=== PATIENT | female | born 1935 | race Caucasian/White ===

== ENCOUNTER 2019-04-27 11:44 | Emergency (ER) | payer OTHER, SELFPAY ==
--- NOTE | ~2019-04-27 | US_ITS ---
EXAMINATION: US venous doppler LE RT DATE: 04/27/2019 12:43 INDICATION: Right lower limb swelling and erythema. TECHNIQUE: Grayscale ultrasound images without and with compression and Doppler ultrasound images of the right lower extremity veins were obtained. COMPARISON: None. FINDINGS: The visualized portions of right common femoral vein, profunda (deep) femoral vein, femoral vein, pop liteal vein, peroneal trunk, posterior tibial veins, peroneal veins, gastrocnemius vein and greater s aphenous vein outflow are patent. IMPRESSION: 1. No deep venous thrombosis in the right lower limb. Reviewed, dictated and finalized at location A. GLASS DESIGNER
[2019-04-27 12:00] VITALS: BP 150/54; PULSE 73; RESP 16; TEMP 36.7; O2SAT 96
--- NOTE | 2019-04-27 12:09 | ED.LOWEXIN ---
HPI - Extremity Injury (Lower) General Chief Complaint: Extremity Problem,Nontraumatic Stated Complaint: knee pain Time Seen by Provider: 04/27/19 12:05 Source: RN notes reviewed and other (nurse screw machine set up operator tool) Mode of arrival: other Limitations: dementia History of Present Illness HPI Narrative: Pt is an 83 y/o female who presents to the ED, from [facility], with c/o erythema and edema to her RLE that began 7-10 days ago, but is still present. Pt's nurse screw machine set up operator tool was at bedside and provided the information. Pt has a hx of dementia. Pt was here at [facility] on 03/29/19 for the same sx. He states on the pt's examination, the pt's edema was worse on the right leg than on her left leg. Pt was prescribed Keflex and d/c home. Pt followed up with her PCP on 04/14/19 and was prescribed Lasix. He states that today the pt's right leg is increasing in redness and is now hot to the touch. He called her PCP and was recommended to take the pt to the ED for further evaluation. He states the pt's erythema went away, but they have returned. Pt's sx have not alleviated after using LEONID wrap or elevation. Pt denies a fever, worsening weakness, nausea, vomiting, SOB, CP, and a poor appetite. HPI is limited due to pt's dementia. complaint: other (leg edema with erythema) Onset (ago): day(s) (7-10) Relieving factors: nothing Other symptoms: none Treatments prior to arrival: other (LEONID wrap and elevation) Related Data Home Medications Medication Instructions Recorded Confirmed acetaminophen 500 mg tablet See Rx Instructions .ROUTE .COMPLEX 04/14/19 acetaminophen 500 mg tablet See Rx Instructions .ROUTE 04/14/19 .COMPLEX PRN alprazolam 0.25 mg tablet 0.25 mg PO .COMPLEX 04/14/19 ascorbic acid (vitamin C) 500 mg 500 mg PO BID 04/14/19 tablet cetirizine 10 mg tablet 5 mg PO DAILY PRN 04/14/19 cholecalciferol (vitamin D3) 50 2,000 unit PO BID cap 04/14/19 mcg (2,000 unit) capsule donepezil 10 mg tablet 10 mg PO .COMPLEX tablet 04/14/19 furosemide 20 mg tablet See Rx Instructions .ROUTE .COMPLEX 04/14/19 guaifenesin 600 mg tablet, 600 mg PO Q12H PRN tablet 04/14/19 extended release 12 hr loperamide 2 mg tablet See Rx Instructions .ROUTE .COMPLEX 04/14/19 losartan 50 mg tablet 50 mg PO DAILY 04/14/19 memantine 10 mg tablet 10 mg PO BID 04/14/19 rosuvastatin 5 mg tablet 5 mg PO DAILY 04/14/19 sertraline 100 mg tablet 100 mg PO .COMPLEX 04/14/19 Allergies Allergy/AdvReac Type Severity Reaction Status Date / Time Penicillins Allergy Unknown Throat Verified 04/27/19 13:39 swelling Review of Systems Review of Systems: ROS unobtainable: other (limited due to pt's dementia) Constitutional: Constitutional: Denies fever(s) and Denies poor appetite Cardiovascular: Cardiovascular: Denies chest pain and Reports leg edema (right, with erythema) Respiratory: Respiratory: Denies dyspnea Gastrointestinal: Gastrointestinal: Denies nausea and Denies vomiting Neurologic: Denies weakness (worsening) [facility] Past Medical History Medical History (Updated 04/27/19 @ 14:10 by Kelsey Avitia MD) Arthritis hands Carpal tunnel syndrome Cataracts, bilateral Dementia Detached retina GERD (gastroesophageal reflux disease) HLD (hyperlipidemia) [place] (hard of hearing) HTN (hypertension) Post-menopausal bleeding Surgical History Surgical History History of bunionectomy bilaterally History of carpal tunnel release rt Hx of cholecystectomy S/P trigger finger release lt 4th finger Social History Social History Smoking status: Never smoker Alcohol intake: never Gender identity (if verbalized by the patient): Female Exam Const: General: no acute distress and alert Limitations: other limitations (dementia, oriented to person and place) HENMT: Head: normocephalic and atraumatic Mouth: Yes Normal
[2019-04-27 12:34] LABS: Basophils Percent Auto 0.3 % (0.2-1.2); Eosinophils Absolute Auto 0.3 K/mm3 (0-0.3); Eosinophils Percent Auto 2.7 % (0-4.4); Hematocrit 36.5 % (37.0-47.0); Hemoglobin 11.8 g/dL (12.0-15.0); Immature Granulocyte Absolute 0.07 K/mm3 (0.00-0.031); Immature Granulocyte Percent A 0.7 % (0-0.5); Lymphocytes Absolute Auto 3.35 K/mm3 (0.9-3.2); Lymphocytes Percent Auto 31.8 % (18.3-44.2); Mean Corpuscular HGB Conc 32.3 g/dl (32-36); Mean Corpuscular Hemoglobin 27.7 pg (26-34); Mean Corpuscular Volume 85.7 fl (80-100); Mean Platelet Volume 9.3 fl (7.4-10.4); Monocytes Absolute Auto 0.7 K/mm3 (0.1-0.6); Monocytes Percent Auto 6.2 % (2.6-8.5); Neutrophils Absolute Auto 6.2 K/mm3 (1.3-6.7); Neutrophils Percent Auto 58.3 % (45.5-73.1); Platelet Count Result 239 k/mm3 (150-375); Red Blood Count 4.26 M/mm3 (4.2-5.4); Red Cell Distribution Width 13.6 % (11.5-14.5); White Blood Count 10.5 K/mm3 (4.5-10.0)
[2019-04-27 12:48] LABS: Alanine Aminotransferase 32 U/L (4-35); Albumin Level 4.3 g/dL (3.5-5.1); Alkaline Phosphatase 53 U/L (38-126); Aspartate Amino Transferase 48 U/L (14-36); Bilirubin,Total 0.3 mg/dL (0.2-1.3); Blood Urea Nitrogen 21 mg/dL (7-17); CRP 1.6 mg/dL (<1.0); Calcium 9.5 mg/dL (8.4-10.2); Carbon Dioxide 26 mmol/L (22-30); Chloride 98 mmol/L (98-107); Estimated CRCL calculation 33 ml/min; Estimated Glomerular Filt Rate 53; Glucose 149 mg/dL (65-105); Potassium 4.6 mmol/L (3.4-5.0); Sodium 139 mmol/L (137-145)
[2019-04-27 14:48] VITALS: BP 137/52; PULSE 70; RESP 16
== END 2019-04-27 14:49 ==
PROVIDERS: Emergency Provider General Practice; PCP Emergency Medicine
DX: L03.115 Cellulitis of right lower limb (principal); M19.90 Unspecified osteoarthritis, unspecified site; H26.9 Unspecified cataract; F03.90 Unspecified dementia, unspecified severity, without behavioral disturbance, psychotic disturbance, mood disturbance, and anxiety; K21.9 Gastro-esophageal reflux disease without esophagitis; E78.5 Hyperlipidemia, unspecified; I10 Essential (primary) hypertension
CPT/HCPCS: 36415; 80053; 85025; 86140; 93971; 96365; 99284; J0696

== ENCOUNTER 2021-04-29 13:36 | Emergency (ER) | payer OTHER, SELFPAY ==
--- NOTE | ~2021-04-29 | CT_ITS ---
EXAMINATION: CT cervical spine wo con DATE: 04/29/2021 14:17 INDICATION: Fall with head injury TECHNIQUE: Computed tomography (CT) of the cervical spine was performed without intravenous contrast. Automated exposure control and iterative reconstruction technique were employed. The dose-length pro duct was 392.29 mGy-cm. COMPARISON: 05/14/2017 FINDINGS: Alignment is normal. Vertebral body heights are normal. No fracture. Severe disc height loss at C5-C6 , C6-C7 and T1-T2, moderate disc height loss at C4-C5, C7-T1 and T2-T3 and mild disc height loss at C 3-C4. Mild central canal stenosis associated with n posterior osteophytes at C5-C6 and C6-C7. Multile adam moderate to severe cervical uncovertebral osteoarthritis and moderate facet osteoarthritis. This results in mild neural foraminal stenosis at a few levels on both the left and right. IMPRESSION: 1. Severe cervical spondylosis. No acute osseous abnormality. Reviewed, dictated and finalized at location A. CLAIMS EXAMINER
--- NOTE | ~2021-04-29 | XR_ITS ---
EXAMINATION: XR chest 1V portable DATE: 04/29/2021 14:19 INDICATION: Fall and weakness TECHNIQUE: frontal view of the chest was obtained. COMPARISON: 05/14/2017 FINDINGS: The lungs remain clear with no focal airspace opacities, pulmonary edema, pleural effusion or pneumot horax. The cardiomediastinal silhouette is normal. Atherosclerotic aorta. There are bridging osteophy michael at multiple levels in the spine, consistent with diffuse idiopathic skeletal hyperostosis (DISH). IMPRESSION: 1. No acute cardiopulmonary disease. Reviewed, dictated and finalized at location A. R RACER
--- NOTE | ~2021-04-29 | CT_ITS ---
EXAMINATION: CT brain wo con DATE: 04/29/2021 14:17 INDICATION: Fall with head injury TECHNIQUE: Computed tomography (CT) of the head was performed without intravenous contrast. Sagittal and coronal reconstructions were performed. The mA was adjusted according to patient size. Iterative reconstruction technique was employed. The dose-length product was 1437.67 mGy-cm. COMPARISON: head CT dated 07/03/2017 FINDINGS: Evaluation moderately limited by significant motion on both initial and repeat imaging. No fracture. No acute intracranial hemorrhage, acute infarction or abnormal extra axial fluid collection. There is mild to moderate scattered white matter hypoattenuation consistent with chronic small vessel ischemi c disease. Symmetric prominence of the sulci and ventricles consistent with moderate age-appropriate diffuse cerebral volume loss. No mass/mass effect. Changes of bilateral intraocular lens replacement. There is also been prior scleral banding about the left globe. Mucosal thickening in the left ethmoi d sinus. Mastoid air cells and middle ear cavities are clear. IMPRESSION: 1. No evident fracture or acute intracranial process. Evaluation moderately limited by motion on both initial and repeat imaging. 2. Age-related changes including moderate diffuse volume loss and mild to moderate scattered white ma tter hypoattenuation consistent with chronic small vessel schema disease. Reviewed, dictated and finalized at location A. UM CURATOR IMPRESSION: 1. No evident fracture or acute intracranial process. Evaluation moderately renee ited by motion on both initial and repeat imaging. 2. Age-related changes including moderate diffuse volume loss and mild to moder ate scattered white matter hypoattenuation consistent with chronic small vessel schema disease.
[2021-04-29 13:39] VITALS: BP 142/44; PULSE 84; RESP 14; TEMP 36.4; O2SAT 100
--- NOTE | 2021-04-29 13:49 | ECG_ITS ---
Measurements Intervals [place] Rate: 79 P: 91 NV: 185 QRS: 23 QRSD: 88 T: 57 QT: 367 QTc: 422 Interpretive Statements SINUS RHYTHM LEFT VENTRICULAR HYPERTROPHY WITH ST-T CHANGE BASELINE ARTIFACT- I, II, III, AVR, AVL, AVF, V1-V6 BORDERLINE ECG Electronically Signed On 04-29-2021 17:03:29 SOFTWARE TEAM LEADER by Agusto Nayak D.O.
--- NOTE | 2021-04-29 13:52 | ED.FALL ---
HPI - Fall General Chief Complaint: Fall Stated Complaint: FALL, FOREHEAD LAC Time Seen by Provider: 04/29/21 13:43 Source: EMS and RN notes reviewed Mode of arrival: EMS Limitations: dementia History of Present Illness HPI Narrative: This is an 85 year old female with history of dementia and hypertension who presents for evaluation of head injury with laceration s/p unwitnessed fall. It has been reported to staff patient was found on ground and they believe she fell asleep in her wheelchair and fell out. She was awake and alert when found. She is also reportedly at her baseline which is oriented x 1. Patient has been found to have laceration to forehead. She is not on anticoagulation. Related Data Home Medications Medication Instructions Recorded Confirmed acetaminophen 500 mg tablet See Rx Instructions .ROUTE .COMPLEX 04/14/19 acetaminophen 500 mg tablet See Rx Instructions .ROUTE 04/14/19 .COMPLEX PRN alprazolam 0.25 mg tablet 0.25 mg PO .COMPLEX 04/14/19 ascorbic acid (vitamin C) 500 mg 500 mg PO BID 04/14/19 tablet cetirizine 10 mg tablet 5 mg PO DAILY PRN 04/14/19 cholecalciferol (vitamin D3) 50 2,000 unit PO BID cap 04/14/19 mcg (2,000 unit) capsule donepezil 10 mg tablet 10 mg PO .COMPLEX tablet 04/14/19 guaifenesin 600 mg tablet, 600 mg PO Q12H PRN tablet 04/14/19 extended release 12 hr loperamide 2 mg tablet See Rx Instructions .ROUTE .COMPLEX 04/14/19 losartan 50 mg tablet 50 mg PO DAILY 04/14/19 memantine 10 mg tablet 10 mg PO BID 04/14/19 rosuvastatin 5 mg tablet 5 mg PO DAILY 04/14/19 sertraline 100 mg tablet 100 mg PO .COMPLEX 04/14/19 Allergies Allergy/AdvReac Type Severity Reaction Status Date / Time Penicillins Allergy Unknown Throat Verified 04/29/21 13:43 swelling Review of Systems Review of Systems: ROS unobtainable: Yes unobtainable due to medical condition (dementia) [facility] Past Medical History Medical History (Updated 04/29/21 @ 17:20 by Kelsey Avitia MD) Arthritis hands Carpal tunnel syndrome Cataracts, bilateral Dementia Detached retina GERD (gastroesophageal reflux disease) HLD (hyperlipidemia) [place] (hard of hearing) HTN (hypertension) Post-menopausal bleeding Surgical History Surgical History History of bunionectomy bilaterally History of carpal tunnel release rt Hx of cholecystectomy S/P trigger finger release lt 4th finger Family History Family History Mother Family history of cardiovascular disease Family history of aortic aneurysm Father Family history of cardiovascular disease, Onset Age: 79 Family history of cardiomyopathy, Onset Age: 63 Sibling Family history of malignant neoplasm of brain, Onset Age: 51 Social History Social History Smoking status: Never smoker Alcohol intake: never Gender identity (if verbalized by the patient): Female Exam Const: General: no acute distress and alert Other: oriented x 1 HENMT: Head: normocephalic and other (mid forehead hematoma with 3 cm irregular laceration with controlled bleedi) Ears: external ears normal Mouth: Yes Normal oral and palatal mucosa present, Yes lip normal, Yes tongue normal and Yes oropharynx normal Eyes: Pupils: Equal, round and reactive pupils present EOM: EOMs intact bilaterally Neck: Neck: normal visual inspection Chest: Chest palpation & inspection: normal inspection of the chest Resp: Effort & Inspection: normal respiratory effort and no retractions Auscultation: clear to auscultation bilaterally Cardio: Rate: regular rate Rhythm: regular rhythm Heart sounds: no murmurs GI: GI Palp: Yes Soft to palpation, No Tenderness to palpation present (GI) and No Guarding due to palpation present (GI) Auscultation: normal bowel sounds Skin: Oth
[2021-04-29 14:54] LABS: Basophils Percent Auto 0.2 % (0.2-1.2); Eosinophils Absolute Auto 0.4 K/mm3 (0-0.3); Eosinophils Percent Auto 3.3 % (0-4.4); Hematocrit 31.1 % (37.0-47.0); Hemoglobin 9.5 g/dL (12.0-15.0); Immature Granulocyte Percent A 0.8 % (0-0.5); Lymphocytes Absolute Auto 2.59 K/mm3 (0.9-3.2); Lymphocytes Percent Auto 21.8 % (18.3-44.2); Mean Corpuscular HGB Conc 30.5 g/dl (32-36); Mean Corpuscular Hemoglobin 23.9 pg (26-34); Mean Corpuscular Volume 78.3 fl (80-100); Mean Platelet Volume 8.2 fl (7.4-10.4); Monocytes Absolute Auto 0.6 K/mm3 (0.1-0.6); Monocytes Percent Auto 5.4 % (2.6-8.5); Neutrophils Absolute Auto 8.1 K/mm3 (1.3-6.7); Neutrophils Percent Auto 68.5 % (45.5-73.1); Platelet Count Result 374 k/mm3 (150-375); Red Blood Count 3.97 M/mm3 (4.2-5.4); White Blood Count 11.9 K/mm3 (4.5-10.0)
[2021-04-29 15:03] LABS: INR 1.1; Prothrombin Time 13.6 Seconds (11.1-14.7)
[2021-04-29 15:07] LABS: Alanine Aminotransferase 10 U/L (4-35); Alkaline Phosphatase 88 U/L (38-126); Anion Gap 8 mmol/L (8-16); Aspartate Amino Transferase 22 U/L (14-36); Bilirubin,Total 0.3 mg/dL (0.2-1.3); Blood Urea Nitrogen 41 mg/dL (7-17); Calcium 9.5 mg/dL (8.4-10.2); Carbon Dioxide 22 mmol/L (22-30); Chloride 99 mmol/L (98-107); Estimated CRCL calculation 18 ml/min; Estimated Glomerular Filt Rate 24; Glucose 141 mg/dL (65-110); Potassium 4.5 mmol/L (3.4-5.0); Sodium 129 mmol/L (137-145)
[2021-04-29] MEDS: SODIUM CHLORIDE 0.9% IV 1,000 ML 999 ML IV CONT (16:16)
[2021-04-29 16:51] VITALS: BP 151/54; PULSE 85; RESP 14; O2SAT 99
[2021-04-29 17:25] VITALS: BP 141/66; PULSE 80; RESP 14; TEMP 36.7; O2SAT 97
== END 2021-04-29 17:25 ==
PROVIDERS: Emergency Provider General Practice; PCP Emergency Medicine
DX: S01.81XA Laceration without foreign body of other part of head, initial encounter (principal); F03.90 Unspecified dementia, unspecified severity, without behavioral disturbance, psychotic disturbance, mood disturbance, and anxiety; I10 Essential (primary) hypertension; M19.042 Primary osteoarthritis, left hand; M19.041 Primary osteoarthritis, right hand; K21.9 Gastro-esophageal reflux disease without esophagitis; E78.5 Hyperlipidemia, unspecified; N28.9 Disorder of kidney and ureter, unspecified; M47.812 Spondylosis without myelopathy or radiculopathy, cervical region; I51.7 Cardiomegaly; W05.0XXA Fall from non-moving wheelchair, initial encounter
CPT/HCPCS: 36415; 70450; 71045; 72125; 80053; 85025; 85610; 85730; 93005; 96360; 99284; J7030

== ENCOUNTER 2021-06-08 15:44 | Emergency (ER) | payer OTHER, SELFPAY ==
--- NOTE | ~2021-06-08 | XR_ITS ---
XR chest 1V DATE: 06/08/2021 16:56 INDICATION: Fall TECHNIQUE: Supine AP chest COMPARISON: April 29, 2021 AP chest FINDINGS: Heart size is within normal range. Is aortic arch calcification. No hilar or mediastinal en largement is evident. No pulmonary infiltrate or consolidation, pleural effusion or pulmonary vascular congestion or pneumo thorax is evident. Included skeletal structures are unremarkable other than some degenerative spurring of the thoracic s pine. IMPRESSION: No active cardiopulmonary disease Reviewed, dictated and finalized at location A.
--- NOTE | ~2021-06-08 | XR_ITS ---
XR pelvis 1-2V DATE: 06/08/2021 16:56 INDICATION: Fall. Pelvic pain. TECHNIQUE: AP pelvis COMPARISON: None FINDINGS: There is a transitional lumbosacral vertebra (likely S1). Moderately prominent degenerative disc disease of the lower lumbar spine. No pelvic fracture or bone destruction is detected. The pubic symphysis and sacroiliac joints are int act. Hip joint spaces are symmetric and relatively well preserved. IMPRESSION: No pelvic fracture is detected Transitional probable S1 lumbosacral vertebra Moderately prominent degenerative disc disease of the lower lumbar spine Reviewed, dictated and finalized at location A.
--- NOTE | ~2021-06-08 | CT_ITS ---
EXAMINATION: CT brain wo con DATE: 06/08/2021 17:03 INDICATION: Head injury. TECHNIQUE: Computed tomography (CT) of the head was performed without intravenous contrast. The mA wa s adjusted according to patient size. Iterative reconstruction technique was employed. The dose-lengt h product was 605.33 mGy-cm. COMPARISON: Head CT 04/29/2021 FINDINGS: There are old infarcts in the bilateral basal ganglia. There are scattered areas of low att enuation in the cerebral white matter. There is asymmetric volume loss of the left frontal lobe periv entricular white matter. There is ex vacuo dilatation of anterior body of left lateral ventricle. The re are likely changes of ocular lens replacement surgeries. There are changes of left-sided scleral b anding procedure. The mastoid air cells are normal. There is mucosal thickening in the paranasal sinu ses. There is right frontal scalp soft tissue swelling. IMPRESSION: 1. Old infarcts in the bilateral basal ganglia and asymmetric volume loss of the left frontal lobe wh ite matter. 2. Stable moderate nonspecific cerebral white matter disease, which likely represents chronic small v essel ischemic disease. Reviewed, dictated and finalized at location A. IMPRESSION: 1. Old infarcts in the bilateral basal ganglia and asymmetric volume loss of th e left frontal lobe white matter. 2. Stable moderate nonspecific cerebral white matter disease, which likely repr esents chronic small vessel ischemic disease.
--- NOTE | ~2021-06-08 | CT_ITS ---
EXAMINATION: CT cervical spine wo con DATE: 06/08/2021 17:03 INDICATION: Head injury. TECHNIQUE: Computed tomography (CT) of the cervical spine was performed without intravenous contrast. Automated exposure control and iterative reconstruction technique were employed. The dose-length pro duct was 398.78 mGy-cm. COMPARISON: CT cervical spine 04/29/2021 FINDINGS: Bone alignment is normal. Vertebral body heights are normal. There is mildly decreased disc height at C3-C4, moderately decreased disc height at C4-C5, severely decreased disc height at C5-C6 and C6-C7, and mildly decreased disc height at C7-T1. The following disc levels are specifically disc ussed: C2-C3: There is no uncovertebral joint osteoarthritis. There is severe bilateral facet joint osteoart hritis. There is no neural foraminal stenosis. There is no central canal stenosis. C3-C4: There is mild bilateral uncovertebral joint osteoarthritis. There is severe bilateral facet bk int osteoarthritis. There is mild bilateral neural foraminal stenosis. There is mild central canal st enosis. C4-C5: There is moderate right and mild left uncovertebral joint osteoarthritis. There is severe righ t and mild left facet joint osteoarthritis. There is mild right neural foraminal stenosis. There is m ild central canal stenosis. C5-C6: There is severe right and moderate left uncovertebral joint osteoarthritis. There is severe ri ght and mild left facet joint osteoarthritis. There is mild bilateral neural foraminal stenosis. Ther e is mild central canal stenosis. C6-C7: There is severe bilateral uncovertebral joint osteoarthritis. There is mild bilateral facet bk int osteoarthritis. There is mild bilateral neural foraminal stenosis. There is mild central canal st enosis. C7-T1: There is moderate left uncovertebral joint osteoarthritis. There is severe bilateral facet dano nt osteoarthritis. There is mild bilateral neural foraminal stenosis. There is no central canal steno sis. IMPRESSION: 1. No fracture. 2. Severe cervical spondylosis. Reviewed, dictated and finalized at location A.
[2021-06-08 16:02] VITALS: BP 110/77; PULSE 92; RESP 16; TEMP 36.8; O2SAT 100
[2021-06-08 17:06] VITALS: BP 157/60; PULSE 90; RESP 22; O2SAT 98
[2021-06-08] MEDS: TETANUS,DIPHTHERIA,AC PERTUSSIS ADULT (0.5 ML) BOOSTRIX IM (17:12)
--- NOTE | 2021-06-08 17:28 | ED.GENADULT ---
HPI - General Adult General Chief complaint: Fall <Dashawn Ag DO - Last Filed: 06/08/21 17:45> Stated complaint: fall from wheelchair, unwitnessed fall <Dashawn Ag DO - Last Filed: 06/08/21 17:45> Time Seen by Provider: 06/08/21 16:18 <Dashawn Ag DO - Last Filed: 06/08/21 17:45> Source: RN notes reviewed <Dashawn Ag DO - Last Filed: 06/08/21 17:45> History of Present Illness HPI narrative: Patient presents emerged department from [facility] via EMS for fall. History is per EMS and [facility]. Patient had a fall out of the wheelchair today is unknown if she had any loss of consciousness was noted to have abrasion on her right forehead patient has a history of dementia and is ANO 1 times baseline is currently at her baseline patient currently laying in bed she denies any pain at this time she denies chest pain shortness of breath or abdominal <Dashawn Ag DO - Last Filed: 06/08/21 17:45> Related Data Home medications: Home Medications Medication Instructions Recorded Confirmed acetaminophen 500 mg tablet See Rx Instructions .ROUTE .COMPLEX 04/14/19 acetaminophen 500 mg tablet See Rx Instructions .ROUTE 04/14/19 .COMPLEX PRN alprazolam 0.25 mg tablet 0.25 mg PO .COMPLEX 04/14/19 ascorbic acid (vitamin C) 500 mg 500 mg PO BID 04/14/19 tablet cetirizine 10 mg tablet 5 mg PO DAILY PRN 04/14/19 cholecalciferol (vitamin D3) 50 2,000 unit PO BID cap 04/14/19 mcg (2,000 unit) capsule donepezil 10 mg tablet 10 mg PO .COMPLEX tablet 04/14/19 guaifenesin 600 mg tablet, 600 mg PO Q12H PRN tablet 04/14/19 extended release 12 hr loperamide 2 mg tablet See Rx Instructions .ROUTE .COMPLEX 04/14/19 losartan 50 mg tablet 50 mg PO DAILY 04/14/19 memantine 10 mg tablet 10 mg PO BID 04/14/19 rosuvastatin 5 mg tablet 5 mg PO DAILY 04/14/19 sertraline 100 mg tablet 100 mg PO .COMPLEX 04/14/19 <Dashawn Ag DO - Last Filed: 06/08/21 17:45> Allergies/adverse reactions: Allergies Allergy/AdvReac Type Severity Reaction Status Date / Time Penicillins Allergy Unknown Throat Verified 04/29/21 13:43 swelling <Dashawn Ag DO - Last Filed: 06/08/21 17:45> Review of Systems Review of Systems: Gen.: Denies fevers or chills Eyes: Denies eye pain ENT: Denies facial pain Respiratory: Denies shortness of breath CV: Denies chest pain GI: Denies abdominal pain nausea, emesis Musculoskeletal: Denies back pain or muscle pain Neuro: Denies headache Skin: See HPI Except as documented, all other systems reviewed and negative Review of systems is limited secondary to patient with dementia <Dashawn Ag DO - Last Filed: 06/08/21 17:45> [facility] Past Medical History Medical History: Medical History Arthritis hands Carpal tunnel syndrome Cataracts, bilateral Dementia Detached retina GERD (gastroesophageal reflux disease) HLD (hyperlipidemia) [place] (hard of hearing) HTN (hypertension) Post-menopausal bleeding <Dashawn Ag DO - Last Filed: 06/08/21 17:45> Surgical History Surgical History: Surgical History History of bunionectomy bilaterally History of carpal tunnel release rt Hx of cholecystectomy S/P trigger finger release lt 4th finger <Dashawn Ag DO - Last Filed: 06/08/21 17:45> Family History Family History: Family History Mother Family history of cardiovascular disease Family history of aortic aneurysm Father Family history of cardiovascular disease, Onset Age: 79 Family history of cardiomyopathy, Onset Age: 63 Sibling Family history of malignant neoplasm of brain, Onset Age: 51 <Dashawn Ag DO - Last Filed: 06/08/21 17:45> Social History Social History: Social History (Revi
[2021-06-08 18:30] VITALS: BP 137/60; PULSE 94; RESP 18; O2SAT 96
== END 2021-06-08 18:31 ==
PROVIDERS: Emergency Provider Emergency Medicine; PCP Emergency Medicine
DX: S01.81XA Laceration without foreign body of other part of head, initial encounter (principal); Z23 Encounter for immunization; F03.90 Unspecified dementia, unspecified severity, without behavioral disturbance, psychotic disturbance, mood disturbance, and anxiety; E78.5 Hyperlipidemia, unspecified; I10 Essential (primary) hypertension; K21.9 Gastro-esophageal reflux disease without esophagitis; M19.042 Primary osteoarthritis, left hand; M19.041 Primary osteoarthritis, right hand; H26.9 Unspecified cataract; W05.0XXA Fall from non-moving wheelchair, initial encounter
CPT/HCPCS: 12011; 70450; 71045; 72125; 72170; 90471; 90715; 99284

== ENCOUNTER 2021-10-15 17:13 | Emergency (ER) | payer OTHER, SELFPAY ==
[2021-10-15] VITALS (35 sets, daily range): BP systolic 132–166; BP diastolic 50–85; PULSE 72–93; RESP 13–29; TEMP 36.9; O2SAT 96–100
--- NOTE | ~2021-10-15 | CT_ITS ---
EXAMINATION: CT cervical spine wo con DATE: 10/15/2021 17:42 INDICATION: trauma TECHNIQUE: Computed tomography (CT) of the cervical spine was performed without intravenous contrast. Automated exposure control and iterative reconstruction technique were employed. The dose-length pro duct was 413.13 mGy-cm. COMPARISON: 06/08/2021 FINDINGS: Vertebral Body Alignment: Intact. Craniocervical and atlantoaxial alignment: Moderate degenerative change. Alignment intact. Osseous structures/fracture: No evidence of a lytic or blastic process in the visualized spine. No e vidence of acute fracture. Cervical soft tissues: The paraspinal soft tissues planes are maintained. Degenerative changes: Degenerative changes, without severe neural foraminal or central canal narrowin g. IMPRESSION: No acute fracture or traumatic malalignment in the cervical spine. Reviewed, dictated and finalized at location K.
--- NOTE | ~2021-10-15 | CT_ITS ---
EXAMINATION: CT brain wo con DATE: 10/15/2021 17:42 INDICATION: trauma . TECHNIQUE: Computed tomography (CT) of the head was performed without intravenous contrast. The mA wa s adjusted according to patient size. Iterative reconstruction technique was employed. The dose-lengt h product was 908.00 mGy-cm. COMPARISON: 06/08/2021 FINDINGS: Motion limited examination. No acute intracranial hemorrhage or extra-axial fluid collection. No hydrocephalus, mass, or herniation. No acute ischemic infarct. Unremarkable dural venous sinus attenuation. No acute osseous abnormality. Right frontal scalp hematoma. The aerated spaces are clear. Mild atrophy and moderate chronic white matter change. 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 Atheros clerotic intracranial calcification. Ex vacuo dilatation of the left frontal horn. Bilateral lens rep lacements. Left scleral band. IMPRESSION: No acute intracranial process. Reviewed, dictated and finalized at location K.
--- NOTE | 2021-10-15 20:30 | ED.FALL ---
HPI - Fall General Chief Complaint: Fall Stated Complaint: GLF Time Seen by Provider: 10/15/21 17:17 History of Present Illness HPI Narrative: Patient is an 86-year-old female who presents ER with with head injury. Patient had ground-level fall striking her head on the ground. Patient with severe dementia and is only oriented x1 and is often aggressive when approached. She is on any blood thinners. She arrives at her baseline mental status. Related Data Home Medications Medication Instructions Recorded Confirmed acetaminophen 500 mg tablet See Rx Instructions .Route 04/14/19 .COMPLEX PRN Pain acetaminophen 500 mg tablet See Rx Instructions .Route .COMPLEX 04/14/19 (Tylenol Extra Strength) alprazolam 0.25 mg tablet (Xanax) 0.25 mg PO .COMPLEX 04/14/19 ascorbic acid (vitamin C) 500 mg 500 mg PO BID 04/14/19 tablet (Vitamin C) cetirizine 10 mg tablet 5 mg PO DAILY PRN Allergy Symptoms 04/14/19 cholecalciferol (vitamin D3) 50 2,000 unit PO BID 04/14/19 mcg (2,000 unit) capsule donepezil 10 mg tablet (Aricept) 10 mg PO .COMPLEX 04/14/19 guaifenesin 600 mg tablet, 600 mg PO Q12H PRN Allergy Symptoms 04/14/19 extended release 12 hr (Mucinex) loperamide 2 mg tablet (Imodium See Rx Instructions .Route .COMPLEX 04/14/19 A-D) losartan 50 mg tablet 50 mg PO DAILY 04/14/19 memantine 10 mg tablet (Namenda) 10 mg PO BID dementia 04/14/19 rosuvastatin 5 mg tablet 5 mg PO DAILY hyperlipidemia 04/14/19 sertraline 100 mg tablet 100 mg PO .COMPLEX depression 04/14/19 Allergies Allergy/AdvReac Type Severity Reaction Status Date / Time Penicillins Allergy Unknown Throat Verified 04/29/21 13:43 swelling Review of Systems Review of Systems: ROS unobtainable: Yes unobtainable due to mental status PMFSH Past Medical History Medical History Arthritis hands Carpal tunnel syndrome Cataracts, bilateral Dementia Detached retina GERD (gastroesophageal reflux disease) HLD (hyperlipidemia) [place] (hard of hearing) HTN (hypertension) Post-menopausal bleeding Surgical History Surgical History History of bunionectomy bilaterally History of carpal tunnel release rt Hx of cholecystectomy S/P trigger finger release lt 4th finger Family History Family History Mother Family history of cardiovascular disease Family history of aortic aneurysm Father Family history of cardiovascular disease, Onset Age: 79 Family history of cardiomyopathy, Onset Age: 63 Sibling Family history of malignant neoplasm of brain, Onset Age: 51 Social History Social History Smoking status: Never smoker Alcohol intake: never Gender identity (if verbalized by the patient): Female Exam Narrative: GENERAL: Well-appearing, well-nourished, and in no acute distress. HEAD: Normocephalic, forehead laceration 2 cm with soft tissue swelling beneath it. EYES: PERRL and EOMI. ENT: Nares clear, no rhinorrhea or epistaxis. Mucous membranes moist. NECK: Supple. No midline tenderness. CHEST: Clear to auscultation. No respiratory distress. HEART: Regular rate and rhythm. Normal peripheral pulses. ABDOMEN: Soft, nontender, nondistended. EXTREMITIES: Normal range of motion. No edema. SKIN: Warm, dry, no rash. NEURO: Alert and oriented x3. PSYCH: Normal mood and affect. Course Course Emergency Course: Patient very violent and will not let you touch her. It is not safe enough to suture the laceration so Steri-Strips were applied. There is no evidence of cervical or intracranial injury. Discharge back to half-way. Vital Signs Vital signs: Vital Signs Temperature 98.4 F 10/15/21 17:13 Pulse Rate 81 10/15/21 17:13 Respiratory Rate 14 10/15/21 17:13 Blood Pressure
--- NOTE | 2021-10-15 21:13 | PC.NURSE ---
called [facility] to request transport. ETA 0030 called [facility] to request transport. declined
--- NOTE | 2021-10-15 21:30 | PC.NURSE ---
called [facility] to request transport. declined
--- NOTE | 2021-10-15 23:38 | PC.NURSE ---
[facility] here.
== END 2021-10-15 23:53 ==
PROVIDERS: Emergency Provider Emergency Medicine; PCP Emergency Medicine
DX: S01.81XA Laceration without foreign body of other part of head, initial encounter (principal); F03.90 Unspecified dementia, unspecified severity, without behavioral disturbance, psychotic disturbance, mood disturbance, and anxiety; E78.5 Hyperlipidemia, unspecified; I10 Essential (primary) hypertension; K21.9 Gastro-esophageal reflux disease without esophagitis; H26.9 Unspecified cataract; M19.042 Primary osteoarthritis, left hand; M19.041 Primary osteoarthritis, right hand; W18.30XA Fall on same level, unspecified, initial encounter
CPT/HCPCS: 70450; 72125; 99284

== ENCOUNTER 2021-10-20 14:39 | Inpatient (IN) | payer OTHER, SELFPAY ==
[2021-10-20] VITALS (30 sets, daily range): BP systolic 108–177; BP diastolic 51–94; PULSE 77–94; RESP 13–22; TEMP 36.2–36.8; O2SAT 96–100
--- NOTE | ~2021-10-20 | XR_ITS ---
EXAMINATION: XR chest 1V portable DATE: 10/22/2021 00:34 INDICATION: Conference Organizer oxygen requirement. Desaturation. TECHNIQUE: frontal view of the chest was obtained. COMPARISON: Chest radiograph dated 06/08/21 FINDINGS: Pulmonary vascular congestion and diffuse bilateral increased indistinct interstitial pattern is like ly mild pulmonary edema. No pleural effusion or pneumothorax. The cardiomediastinal silhouette is nor mal. IMPRESSION: 1. Pulmonary vascular congestion with diffuse bilateral increased interstitial pattern and favor pulm onary edema over pneumonia. Reviewed, dictated and finalized at location A. IMPRESSION: 1. Pulmonary vascular congestion with diffuse bilateral increased interstitial pattern and favor pulmonary edema over pneumonia.
--- NOTE | ~2021-10-20 | XR_ITS ---
EXAMINATION: XR chest 2V 10/26/2021 08:22 INDICATION: Shortness of breath PROCEDURE: 2 view chest COMPARISON: Comparison to multiple prior studies sequentially, with oldest reviewed study dated 04/29. FINDINGS: The lungs are clear. The cardiomediastinal silhouette is within normal limits. There are no pleural effusions. There is no pneumothorax suspected. IMPRESSION: 1: NO ACUTE CARDIOPULMONARY DISEASE. Reviewed, dictated and finalized at location B.
--- NOTE | ~2021-10-20 | XR_ITS ---
EXAMINATION: XR abdomen/kub 1V DATE: 10/30/2021 09:57 INDICATION: Constipation. TECHNIQUE: A supine view of the abdomen on 2 radiographs was obtained. COMPARISON: None. FINDINGS: There are no dilated loops of bowel. There is a moderate volume of stool in the colon. Calc ifications in the pelvis are likely vascular. IMPRESSION: 1. Nonobstructive bowel gas pattern. Reviewed, dictated and finalized at location A.
--- NOTE | ~2021-10-20 | US_ITS ---
US renal BI 10/25/2021 10:43 Procedure: Realtime transabdominal ultrasound of the kidneys and bladder. Indication: Acute on chronic kidney disease. Comparison: No prior studies for comparison. Findings: Renal echotexture is normal bilaterally without contour deforming mass or renal calculus. T he right kidney measures 10.5 cm and left kidney measures 9.8 cm. There is mild left hydronephrosis. There is bladder wall thickening with debris dependently in the bladder. Incidental note is made of e ndometrial thickening measuring 0.74 cm. Impression: 1: Mild left hydronephrosis. 2: Bladder wall thickening with internal debris. Consider cystitis in the appropriate clinical setti ng. 3: Thickened endomtrial complex. The differential diagnosis includes endometrial hyperplasia, polyp a nd carcinoma. Biopsy is recommended. Reviewed, dictated and finalized at location B. Impression: 1: Mild left hydronephrosis. 2: Bladder wall thickening with internal debris. Consider cystitis in the appr opriate clinical setting. 3: Thickened endomtrial complex. The differential diagnosis includes endometria l hyperplasia, polyp and carcinoma. Biopsy is recommended.
--- NOTE | ~2021-10-20 | XR_ITS ---
XR chest 1V portable 10/22/2021 08:10 Indication: Dyspnea. Evaluate bilateral infiltrates. Procedure: AP portable chest Comparison: 10/22/2021 Findings: Heart size normal. Improving mild interstitial edema. Small right pleural effusion. No pneu mothorax. No acute osseous abnormality. Impression: 1: Improving interstitial edema. Reviewed, dictated and finalized at location B. Impression: 1: Improving interstitial edema.
--- NOTE | 2021-10-20 15:11 | ED.GIBLEED ---
HPI - GI Bleed General Chief complaint: GI Bleed Stated complaint: vomit blood Time Seen by Provider: 10/20/21 14:44 History of Present Illness HPI Narrative: This is an 86-year-old female with dementia ANO x1 [facility] for single episode of bloody vomiting with clots. Patient is not on any blood thinners. She was recently seen in the emergency department with a fall and head injury without any reported epistaxis. The patient is unable to provide any additional history. Related Data Home Medications Medication Instructions Recorded Confirmed acetaminophen 500 mg tablet See Rx Instructions .Route 04/14/19 .COMPLEX PRN Pain acetaminophen 500 mg tablet See Rx Instructions .Route .COMPLEX 04/14/19 (Tylenol Extra Strength) alprazolam 0.25 mg tablet (Xanax) 0.25 mg PO .COMPLEX 04/14/19 ascorbic acid (vitamin C) 500 mg 500 mg PO BID 04/14/19 tablet (Vitamin C) cetirizine 10 mg tablet 5 mg PO DAILY PRN Allergy Symptoms 04/14/19 cholecalciferol (vitamin D3) 50 2,000 unit PO BID 04/14/19 mcg (2,000 unit) capsule donepezil 10 mg tablet (Aricept) 10 mg PO .COMPLEX 04/14/19 guaifenesin 600 mg tablet, 600 mg PO Q12H PRN Allergy Symptoms 04/14/19 extended release 12 hr (Mucinex) loperamide 2 mg tablet (Imodium See Rx Instructions .Route .COMPLEX 04/14/19 A-D) losartan 50 mg tablet 50 mg PO DAILY 04/14/19 memantine 10 mg tablet (Namenda) 10 mg PO BID dementia 04/14/19 rosuvastatin 5 mg tablet 5 mg PO DAILY hyperlipidemia 04/14/19 sertraline 100 mg tablet 100 mg PO .COMPLEX depression 04/14/19 Allergies Allergy/AdvReac Type Severity Reaction Status Date / Time Penicillins Allergy Unknown Throat Verified 04/29/21 13:43 swelling Review of Systems Review of Systems: Systems limited due to patient's mental status GASTROINTESTINAL: Bloody vomiting PMFSH Past Medical History Medical History Arthritis hands Carpal tunnel syndrome Cataracts, bilateral Dementia Detached retina GERD (gastroesophageal reflux disease) HLD (hyperlipidemia) [place] (hard of hearing) HTN (hypertension) Post-menopausal bleeding Surgical History Surgical History History of bunionectomy bilaterally History of carpal tunnel release rt Hx of cholecystectomy S/P trigger finger release lt 4th finger Family History Family History Mother Family history of cardiovascular disease Family history of aortic aneurysm Father Family history of cardiovascular disease, Onset Age: 79 Family history of cardiomyopathy, Onset Age: 63 Sibling Family history of malignant neoplasm of brain, Onset Age: 51 Social History Social History Smoking status: Never smoker Alcohol intake: never Gender identity (if verbalized by the patient): Female Exam Narrative: GENERAL: Well-appearing, well-nourished, and in no acute distress. HEAD: Normocephalic, healing laceration over the right eye with Steri-Strips in place, right periorbital ecchymosis EYES: PERRLA and EOMI. ENT: Nares clear, no rhinorrhea or epistaxis. Mucous membranes moist. Oropharynx without tonsillar hypertrophy exudate or other lesions. NECK: Supple. No adenopathy or masses. No carotid bruits or JVD CHEST: Clear to auscultation. No respiratory distress. No wheezes rales or rhonchi HEART: Regular rate and rhythm. No murmur heard. Normal peripheral pulses. ABDOMEN: Well-healed surgical scars, soft, nontender, nondistended, normal active bowel sounds. EXTREMITIES: Normal range of motion. No edema. SKIN: Warm, dry, no rash. NEURO: No focal deficits. Alert and oriented x1 (self). Strength out of 5 in all extremities, sensation intact. CN II through XII intact PSYCH: Normal mood and affect. Course C
[2021-10-20 15:37] LABS: Basophils Percent Auto 0.2 % (0.2-1.2); Eosinophils Absolute Auto 0.4 K/mm3 (0-0.3); Eosinophils Percent Auto 3.2 % (0-4.4); Hematocrit 26.8 % (37.0-47.0); Immature Granulocyte Absolute 0.04 K/mm3 (0.00-0.031); Immature Granulocyte Percent A 0.4 % (0-0.5); Lymphocytes Absolute Auto 3.03 K/mm3 (0.9-3.2); Mean Corpuscular HGB Conc 29.9 g/dl (32-36); Mean Corpuscular Hemoglobin 23.7 pg (26-34); Mean Corpuscular Volume 79.3 fl (80-100); Mean Platelet Volume 8.6 fl (7.4-10.4); Monocytes Absolute Auto 0.8 K/mm3 (0.1-0.6); Monocytes Percent Auto 6.8 % (2.6-8.5); Neutrophils Percent Auto 62.4 % (45.5-73.1); Platelet Count Result 328 k/mm3 (150-375); Red Blood Count 3.38 M/mm3 (4.2-5.4); Red Cell Distribution Width 16.1 % (11.5-14.5); White Blood Count 11.2 K/mm3 (4.5-10.0)
[2021-10-20 15:47] LABS: INR 1.1; Prothrombin Time 13.5 Seconds (11.1-14.7)
[2021-10-20 15:48] LABS: Hypochromasia 1+ (NORMAL); Ovalocytes 1+ (NORMAL); Partial Thromboplastin Time 28.1 SECONDS (22.3-36.8); Platelet Estimate Adequate (Adequate)
[2021-10-20 15:52] LABS: Alanine Aminotransferase 10 U/L (6-35); Albumin Level 4.1 g/dL (3.5-5.1); Alkaline Phosphatase 74 U/L (38-126); Anion Gap 12 mmol/L (8-16); Aspartate Amino Transferase 20 U/L (14-36); Bilirubin,Total 0.2 mg/dL (0.2-1.3); Blood Urea Nitrogen 33 mg/dL (7-17); Calcium 9.2 mg/dL (8.4-10.2); Carbon Dioxide 28 mmol/L (22-30); Chloride 98 mmol/L (98-107); Estimated CRCL calculation 18 ml/min; Estimated Glomerular Filt Rate 27; Glucose 93 mg/dL (65-110); Magnesium 2.1 mg/dL (1.6-2.3); Potassium 4.3 mmol/L (3.4-5.0); Sodium 138 mmol/L (137-145)
[2021-10-20] MEDS: PANTOPRAZOLE SODIUM IV 40 MG VIAL 80 MG IV PUSH (16:18)
--- NOTE | 2021-10-20 18:00 | PM.IMHP ---
H&P: HPI History of Present Illness Date/Time: 10/20/21 18:00 Chief Complaint: Hematemesis. Narrative: This is a pleasant 86-year-old female with dementia, hypertension, hyperlipidemia, chronic anemia, chronic kidney disease, and GERD who presented to the emergency department via EMS from [facility] for evaluation of reported hematemesis. Due to her dementia she is not able to provide an accurate history and as such some of the following is supplemented via a review of her electronic medical records. According to the triage note, the patient reportedly had an episode of projectile vomiting this afternoon which was described as dark red and containing blood clots. The patient is not recall having vomited and she has no complaints at the time my evaluation however on exam she is tender to palpation in the epigastric region. Vital signs were stable on arrival to the emergency department. Her labs were essentially stable when compared to previous studies he aside from her hemoglobin which was 1.5 g lower than what it was in April. She has had no further episodes of vomiting and she seems to be resting comfortably at this time. Of note, she was seen in the emergency department recently after a fall in which she sustained head trauma. There was no mention of epistaxis at that time. Review of Systems Review of Systems: Twelve systems were reviewed although the accuracy of such is questionable. She specifically denies lightheadedness, dizziness, chest pain, shortness of breath, abdominal pain (though she is tender on exam), bloating, diarrhea, melena, and hematochezia. [facility] Past Medical History Medical History (Updated 10/20/21 @ 22:08 by Mariza Vivar PA-C) Arthritis Chronic anemia Chronic kidney disease Dementia Depression with anxiety Detached retina Gastroesophageal reflux disease Hearing loss Hyperlipidemia Hypertension Post-menopausal bleeding Surgical History Surgical History (Updated 10/20/21 @ 22:03 by Mariza Vivar PA-C) History of bunionectomy of both great toes History of carpal tunnel release History of cholecystectomy Status post trigger finger release Family History Family History Mother Family history of cardiovascular disease Family history of aortic aneurysm Father Family history of cardiovascular disease, Onset Age: 79 Family history of cardiomyopathy, Onset Age: 63 Sibling Family history of malignant neoplasm of brain, Onset Age: 51 Social History Social History (Updated 10/20/21 @ 22:04 by Mariza Vivar PA-C) Social History: Healthcare power of coil maker: Kalyn [place]erío, daughter. Code status: Do not resuscitate. Smoking status: Never smoker Alcohol intake: unknown Substance use: unknown Substance use type: does not use Living arrangements: correction Spiritual care concerns: No Meds Home Medications and Allergies Home Medications Medication Instructions Recorded Confirmed Type acetaminophen 500 mg tablet 500 mg PO Q6H PRN Pain 04/14/19 10/20/21 History acetaminophen 500 mg tablet 500 mg PO BID 04/14/19 10/20/21 History (Tylenol Extra Strength) guaifenesin 600 mg tablet, 600 mg PO Q12H PRN Allergy Symptoms 04/14/19 10/20/21 History extended release 12 hr (Mucinex) losartan 50 mg tablet 50 mg PO DAILY 04/14/19 10/20/21 History atorvastatin 10 mg tablet 10 mg PO DAILY 10/20/21 10/20/21 History bismuth subsalicylate 262 mg/15 mL 262 mg PO DAILY PRN Diarrhea 10/20/21 10/20/21 History oral suspension cholecalciferol (vitamin D3) 25 25 mcg PO DAILY 10/20/21 10/20/21 History mcg (1,000 unit) tablet ondansetron HCl 4 mg tablet 4 mg PO Q4H PRN Nausea 10/20/21 10/20/21 History phenylephrine 0.25 %-mineral oil 1 applic topical DAILY PRN 10/20/21 10/20/21 History 14 %-petrolatm 74.9 % rectal Hemorrhoids ointment (Preparation H) trazodone 5
--- NOTE | 2021-10-20 18:12 | PC.NURSE ---
Rand attempted to obtain blood at 18:10 and patient refused even after explanation
[2021-10-20] MEDS: oxyCODONE/ACETAMINOPHEN (*CRX) 10-325 MG TABLET 1 TAB PO (19:45)
--- NOTE | 2021-10-20 20:26 | ADMGEN ---
This patient, Stephanie Da Silva, was admitted to 2 Medical Room [id number]!@[id number]. Patient/family oriented to hospital policies and general routines including ID bracelet, bed and alarms, visiting hours, pain management, procedures, bathroom and other care routines, personal items, smoking policy, room service/diet, and visiting hours. Information on how to activate the Rapid Response Team has been discussed. Patient/Family are encouraged to report perceived risks to care and to ask questions if they do not understand what they are told or what they should do.
[2021-10-20 21:45] LABS: Hematocrit 25.4 % (37.0-47.0); Hemoglobin 7.6 g/dL (12.0-15.0)
[2021-10-20] MEDS: LACTATED RINGERS 1,000 ML 125 ML IV CONT (21:48)
[2021-10-20 21:56] LABS: Alanine Aminotransferase 12 U/L (6-35); Albumin Level 3.9 g/dL (3.5-5.1); Alkaline Phosphatase 77 U/L (38-126); Anion Gap 10 mmol/L (8-16); Aspartate Amino Transferase 18 U/L (14-36); Bilirubin,Total 0.2 mg/dL (0.2-1.3); Blood Urea Nitrogen 30 mg/dL (7-17); Calcium 8.7 mg/dL (8.4-10.2); Carbon Dioxide 27 mmol/L (22-30); Chloride 103 mmol/L (98-107); Estimated CRCL calculation 18 ml/min; Estimated Glomerular Filt Rate 27; Glucose 123 mg/dL (65-110); Potassium 4.7 mmol/L (3.4-5.0); Sodium 140 mmol/L (137-145)
[2021-10-20] MEDS: traZODone HCL 50 MG TABLET PO (22:37)
[2021-10-21] VITALS (9 sets, daily range): BP systolic 109–154; BP diastolic 50–84; PULSE 69–105; RESP 14–20; TEMP 36.1–36.8; O2SAT 73–100
[2021-10-21] MEDS: LACTATED RINGERS 1,000 ML 70 ML IV CONT ×2 (04:47→23:31)
[2021-10-21 05:35] LABS: Alanine Aminotransferase 9 U/L (6-35); Albumin Level 3.5 g/dL (3.5-5.1); Alkaline Phosphatase 73 U/L (38-126); Anion Gap 9 mmol/L (8-16); Aspartate Amino Transferase 17 U/L (14-36); Bilirubin,Total 0.2 mg/dL (0.2-1.3); Blood Urea Nitrogen 29 mg/dL (7-17); Calcium 9.2 mg/dL (8.4-10.2); Carbon Dioxide 27 mmol/L (22-30); Chloride 103 mmol/L (98-107); Estimated CRCL calculation 17 ml/min; Estimated Glomerular Filt Rate 25; Glucose 104 mg/dL (65-110); Potassium 4.7 mmol/L (3.4-5.0); Sodium 139 mmol/L (137-145)
[2021-10-21 05:40] LABS: Hemoglobin 7.6 g/dL (12.0-15.0); Mean Corpuscular HGB Conc 29.2 g/dl (32-36); Mean Corpuscular Hemoglobin 23.7 pg (26-34); Mean Platelet Volume 8.9 fl (7.4-10.4); Platelet Count Result 320 k/mm3 (150-375); Red Blood Count 3.21 M/mm3 (4.2-5.4); Red Cell Distribution Width 15.9 % (11.5-14.5); White Blood Count 10.1 K/mm3 (4.5-10.0)
[2021-10-21] MEDS: METOCLOPRAMIDE HCL INJ 10 MG/2 ML VIAL IV PUSH (07:54)
[2021-10-21] MEDS: PANTOPRAZOLE SODIUM IV 40 MG VIAL IV PUSH ×2 (08:00→20:42)
--- NOTE | 2021-10-21 08:04 | WPDGICN ---
Assessment and Plan Assessment and plan (1) Hematemesis: Code(s): K92.0 - Hematemesis Status: Acute Assessment and Plan: According to the nursing facility where she resides she had hematemesis of dark blood plus clots. her hemoglobin which was 9.5 when she was seen here for recent fall, has dropped to 7.6. She has had no stools yet. She will be given intravenous Reglan to help empty her stomach of any residual contents or blood. Endoscopy will be performed today. (2) Chronic kidney disease: Code(s): N18.9 - Chronic kidney disease, unspecified Status: Acute Assessment and Plan: The creatinine was 2 and BUN 41 earlier this year. the values are actually somewhat better during this hospitalization so far. (3) Gastroesophageal reflux disease: Code(s): K21.9 - Gastro-esophageal reflux disease without esophagitis Status: Acute Assessment and Plan: This is indicated her medical record although she has not to my knowledge on any acid reducing medications. (4) Dementia: Code(s): F03.90 - Unspecified dementia without behavioral disturbance Status: Acute Assessment and Plan: She has dementia. Consequently, unable to get reliable history from her. (5) Chronic anemia: Code(s): D64.9 - Anemia, unspecified Status: Acute Assessment and Plan: The only be baseline blood count that we have is a hemoglobin of 9.5 from last week. Plan Serial H&H, ppi, endoscopy today. GI Consult Note Consult date/time: 10/21/21 08:04 HPI: Stephanie Da Silva is a 86 year old female About to the emergency room yesterday because of an episode of hematemesis. She resides in a long-term. She has dementia, hypertension, hyperlipidemia, and chronic kidney disease. She is not anticoagulated and Toradol it does not take any anti-inflammatory medications. Medical record indicates that she had episode of projectile vomiting with dark red blood and clots. There is no report of her having had bloody stools. Her hemoglobin has dropped from 9.5-8 and now 7.6. Review of Systems Review of Systems: ROS unobtainable: Yes unobtainable due to mental status PMFSH Past Medical History Medical History (Updated 10/20/21 @ 22:08 by Mariza Vivar PA-C) Arthritis Chronic anemia Chronic kidney disease Dementia Depression with anxiety Detached retina Gastroesophageal reflux disease Hearing loss Hyperlipidemia Hypertension Post-menopausal bleeding Surgical History Surgical History (Updated 10/20/21 @ 22:03 by Mariza Vivar PA-C) History of bunionectomy of both great toes History of carpal tunnel release History of cholecystectomy Status post trigger finger release Family History Family History Mother Family history of cardiovascular disease Family history of aortic aneurysm Father Family history of cardiovascular disease, Onset Age: 79 Family history of cardiomyopathy, Onset Age: 63 Sibling Family history of malignant neoplasm of brain, Onset Age: 51 Social History Social History (Updated 10/20/21 @ 22:04 by Mariza Vivar PA-C) Social History: Healthcare power of patent prosecution attorney: Kalyn Jarreau, daughter. Code status: Do not resuscitate. Smoking status: Never smoker Alcohol intake: unknown Substance use: unknown Substance use type: does not use Living arrangements: long-term Spiritual care concerns: No Meds Home Medications and Allergies Home Medications Medication Instructions Recorded Confirmed Type acetaminophen 500 mg tablet 500 mg PO Q6H PRN Pain 04/14/19 10/20/21 History acetaminophen 500 mg tablet 500 mg PO BID 04/14/19 10/20/21 History (Tylenol Extra Strength) guaifenesin 600 mg tablet, 600 mg PO Q12H PRN Allergy Symptoms 04/14/19 10/20/21 History extended release 12 hr (Mucinex) losartan 50 mg ta
--- NOTE | 2021-10-21 08:10 | PC.NURSE ---
pt to GI lab via [place]
--- NOTE | 2021-10-21 08:17 | WPDANESEPPF ---
Anes - Initial Pre Proc Eval Procedure: Operation Date: 10/21/21 08:00 Proposed Procedures p Esophagogastroduodenoscopy - Akash Hassan MD Date/Time: 10/21/21 08:17 Surgeon: Bren Willams PA-C Pre Op Diagnosis: GI Bleed Patient Data Age: 86 Gender: F Height: 1.65 m Weight: 70.7 kg Last Vital Signs Temp 36.6 C 10/21/21 05:30 Pulse 92 10/21/21 05:30 Resp 18 10/21/21 05:30 BP 141/78 H 10/21/21 05:30 Pulse Ox 96 10/21/21 05:30 O2 Del Method Room Air 10/20/21 14:47 Allergies Allergy/AdvReac Type Severity Reaction Status Date / Time Penicillins Allergy Unknown Throat Verified 10/20/21 21:12 swelling Home Medications Medication Instructions Recorded Confirmed Type acetaminophen 500 mg tablet 500 mg PO Q6H PRN Pain 04/14/19 10/20/21 History acetaminophen 500 mg tablet 500 mg PO BID 04/14/19 10/20/21 History (Tylenol Extra Strength) guaifenesin 600 mg tablet, 600 mg PO Q12H PRN Allergy Symptoms 04/14/19 10/20/21 History extended release 12 hr (Mucinex) losartan 50 mg tablet 50 mg PO DAILY 04/14/19 10/20/21 History atorvastatin 10 mg tablet 10 mg PO DAILY 10/20/21 10/20/21 History bismuth subsalicylate 262 mg/15 mL 262 mg PO DAILY PRN Diarrhea 10/20/21 10/20/21 History oral suspension cholecalciferol (vitamin D3) 25 25 mcg PO DAILY 10/20/21 10/20/21 History mcg (1,000 unit) tablet ondansetron HCl 4 mg tablet 4 mg PO Q4H PRN Nausea 10/20/21 10/20/21 History phenylephrine 0.25 %-mineral oil 1 applic topical DAILY PRN 10/20/21 10/20/21 History 14 %-petrolatm 74.9 % rectal Hemorrhoids ointment (Preparation H) trazodone 50 mg tablet 50 mg PO BID 10/20/21 10/20/21 History Laboratory Tests 08/13/22 08/13/22 08/13/22 15:30 15:30 15:30 WBC 11.2 K/mm3 H K/mm3 (4.5-10.0) RBC 3.38 M/mm3 L M/mm3 (4.2-5.4) Hgb 8.0 g/dL L g/dL (12.0-15.0) Hct 26.8 % L % (37.0-47.0) MCV 79.3 fl L fl (80-100) MCH 23.7 pg L pg (26-34) MCHC 29.9 g/dl L g/dl (32-36) RDW 16.1 % H % (11.5-14.5) Plt Count 328 k/mm3 k/mm3 (150-375) MPV 8.6 fl fl (7.4-10.4) Immature Gran % (Auto) 0.4 % % (0-0.5) Neut % (Auto) 62.4 % % (45.5-73.1) Lymph % (Auto) 27.0 % % (18.3-44.2) [place] % (Auto) 6.8 % % (2.6-8.5) Eos % (Auto) 3.2 % % (0-4.4) Baso % (Auto) 0.2 % % (0.2-1.2) Lymph # (Auto) 3.03 K/mm3 K/mm3 (0.9-3.2) [place] # (Auto) 0.8 K/mm3 H K/mm3 (0.1-0.6) Eos # (Auto) 0.4 K/mm3 H K/mm3 (0-0.3) Baso # (Auto) 0.0 K/mm3 K/mm3 (0.0-0.1) Abs Immat Gran (auto) 0.04 K/mm3 H K/mm3 (0.00-0.031) Absolute Neuts (auto) 7.0 K/mm3 H K/mm3 (1.3-6.7) Absolute Nucleated RBC 0.0 K/mm3 K/mm3 (0.0-0.012) Nucleated RBC % 0.0 % % (0.0-0.2) Platelet Estimate Adequate (Adequate) Hypochromasia 1+ (NORMAL) Ovalocytes 1+ (NORMAL) PT 13.5 Seconds Seconds (11.1-14.7) INR 1.1 APTT 28.1 SECONDS SECONDS (22.3-36.8) Sodium Potassium Chloride Carbon Dioxide Anion Gap BUN Creatinine Estim Creat Clear Calc Estimated GFR Glucose Calcium Magnesium Total Bilirubin AST ALT Alkaline Phosphatase Total Protein Albumin Blood Type A Positive Antibody Screen Negative 10/20/21 10/20/21 10/20/21 15:30 21:39 21:39 WBC RBC Hgb 7.6 g/dL L g/dL (12.0-15.0) Hct 25.4 % L % (37.0-47.0) MCV MCH MCHC RDW Plt Count MPV Immature Gr
[2021-10-21] MEDS: LACTATED RINGERS 1,000 ML 150 ML IV CONT (08:22)
[2021-10-21 11:39] LABS: Hematocrit 26.1 % (37.0-47.0); Hemoglobin 7.9 g/dL (12.0-15.0)
--- NOTE | 2021-10-21 12:36 | PM.IMPN ---
Progress Note: A&P Assessment and Plan (1) Esophageal ulcer with bleeding: Code(s): K22.11 - Ulcer of esophagus with bleeding Status: Acute Assessment and Plan: Patient had episode of hematemesis at her nursing facility prior to presentation with reportedly 75 cc of dark red blood mixed with clots. Appreciate gastroenterology consultation Underwent EGD today which showed multiple benign ulcers visualized in the distal esophagus that were oozing blood as well as reflux and/or Verduzco's esophagitis. Biopsies were collected and are pending Pantoprazole 40 mg b.i.d. Advanced to clear liquid diet per GI. Continue to advance as tolerated Continue gentle IV fluids until diet is advanced (2) Anemia: Code(s): D64.9 - Anemia, unspecified Status: Acute Assessment and Plan: Hemoglobin decreased from baseline on arrival Hemoglobin 7.9 this afternoon. Recheck this evening to ensure remaining stable Continue to monitor H&H (3) Chronic kidney disease: Code(s): N18.9 - Chronic kidney disease, unspecified Status: Acute Assessment and Plan: Renal function appears consistent on review of prior labs Continue to monitor BMP (4) Hypertension: Code(s): I10 - Essential (primary) hypertension Status: Acute Assessment and Plan: Blood pressures reviewed and have been stable. Last BP 140/53 Continue home losartan Monitor BP trends (5) Dementia: Code(s): F03.90 - Unspecified dementia without behavioral disturbance Status: Acute Assessment and Plan: At baseline Subjective Date/time seen: 10/21/21 12:36 Interval history: Date of service: 10/21/2021 Stephanie Da Silva is an 86-year-old female with a history of CKD, chronic anemia, hypertension, hyperlipidemia, depression, anxiety, and dementia who is seen in follow-up for hematemesis. The patient is not able to provide any history given her dementia and does not provide any verbal responses during my encounter with the exception of stating ?no? to no particular question. She has been yelling out, particularly if she is moved or bothered. Per nursing staff, she is at her baseline. Review of Systems Review of Systems: All systems reviewed & are unremarkable except as noted in HPI and below Exam Narrative: General: Well-nourished, chronically ill-appearing 86-year-old female, supine in bed, comfortable, NARD Neuro: awake, does not provide verbal responses, no focal neuro deficits noted HEENMT: normocephalic, atraumatic, EOMI, sclerae anicteric Respiratory: clear to auscultation anterior, nonlabored breathing Cardio: regular rate, regular rhythm with S1-S2 Abdomen: nondistended, normoactive bowel sounds, soft, nontender to palpation Extremities: no edema, erythema, or tenderness to palpation, DP pulses 2+ bilaterally Skin: no rashes or lesions, warm and dry Psych: poor judgment and insight Objective Data Vital Signs Vital Signs: Vital Signs - 24 hr 10/20/21 14:47 10/20/21 16:17 10/20/21 16:23 Temperature 98.0 F 97.6 F Pulse Rate 81 79 79 Respiratory Rate 20 16 15 Blood Pressure 132/51 L 177/94 H Pulse Oximetry 100 100 100 Oxygen Delivery Room Air 10/20/21 16:30 10/20/21 16:45 10/20/21 17:00 Temperature Pulse Rate 82 79 82 Respiratory Rate 15 19 18 Blood Pressure 152/90 H Pulse Oximetry 100 100 100 Oxygen Delivery 10/20/21 17:15 10/20/21 17:30 10/20/21 17:45 Temperature Pulse Rate 85 84 88 Respiratory Rate 17 16 22 H Blood Pressure 165/76 H Pulse Oximetry 100 100 100 Oxygen Delivery 10/20/21 17:55 10/20/21 18:00 10/20/21 18:01 Temperature Pulse Rate 91 94 94 Respiratory Rate 20 13 18 Blood Pressure 165/76 H 173/78 H Pulse Oximetry 100 100 99 Oxygen Delivery 10/20/21 18:15 10/20/21 18:17 10/20/21 18:30 Temperature 97.3 F L Pulse Rate 86 85 85 Respiratory Rate 17 17 14 Blood Pressure 150/71 H Pulse
[2021-10-21] MEDS: IPRATROPIUM BR 0.02% INH SOLN 0.5 MG/2.5 ML VIAL INHALATION (23:55)
[2021-10-21] MEDS: ALBUTEROL SULFATE NEB 2.5 MG/3 ML INH INHALATION (23:55)
[2021-10-22] VITALS (7 sets, daily range): BP systolic 124–160; BP diastolic 42–87; PULSE 86–96; RESP 16–20; TEMP 36.2–37.7; O2SAT 92–100
--- NOTE | 2021-10-22 | ECHO_ITS ---
Patient Info Name: Stephanie Da Silva Age: 86 years : 1935 Gender: Female Ht: 65 in Wt: 145 lbs BSA: 1.75 m2 HR: 96 bpm BP: 160 / 87 mmHg Heart Rhythm: Atrial Fibrillation Technical Quality: Fair Exam Date: 10/22/2021 11:19 AM Exam Location: [facility] Pul[facility] Patient Status: Inpatient Admit Date: 10/20/2021 Staff Ordering Physician: Bren Willams PA-C [address] Service: Kate Moura RDCS Attending Provider: Bren Willams PA-C Referring Physician: Imer ARANGO; Exam Type: CA echo doppler color flow Study Info Indications - pulmonary edema Complete two-dimensional, color flow and Doppler transthoracic echocardiogram is performed. Summary 1. Complete two-dimensional, color flow and Doppler transthoracic echocardiogram is performed. 2. Normal left ventricular size dimension and systolic function. 3. Biatrial dilation left greater than right. 4. Mild sclerosis of the aortic valve. Left Ventricle Left ventricular chamber dimension is normal. Left ventricular systolic function is normal, estimated at 65-70%. The left ventricular diastolic function is indeterminate. Right Ventricle Right ventricular chamber dimension is normal. Left Atria Left atrial chamber dimension is moderately enlarged. Right Atria Right atrial chamber dimension is mildly enlarged. Aortic Valve The aortic valve is trileaflet. There is mild aortic valve sclerosis. Pulmonic Valve The pulmonic valve is normal. Mitral Valve The mitral valve has normal leaflets. Tricuspid Valve The tricuspid valve leaflets are normal. Pericardium/Pleural The pericardium appears normal. Aorta The aortic root size at the sinus of Valsalva is normal. Left Ventricular Outflow Tract Name Value Normal LVOT 2D LVOT Diameter 2.0 cm LVOT Doppler LVOT Peak Gradient 3 mmHg LVOT Mean Gradient 1 mmHg LVOT VTI 13 cm LVOT VTI/AV VTI Ratio 0.5 LVOT Stroke Volume 41 ml LVOT CO 2.7 l/min LVOT CI 1.6 l/min/m2 Mitral Valve Name Value Normal MV Doppler MV Decel [place] 497 cm/s2 MV PHT 54 ms MV Area (PHT) 4.1 cm2 4.0-5.0 MV Diastolic Function MV E Peak Velocity 93 cm/s MV A Peak Velocity 2 cm/s MV E/A 49.1 MV Decel Time 186 ms Tricuspid Valve Name Value Normal
[2021-10-22] MEDS: FUROSEMIDE INJ 40 MG/4 ML VIAL IV PUSH ×2 (00:02→09:01)
[2021-10-22 05:24] LABS: Hematocrit 26.3 % (37.0-47.0); Hemoglobin 8.1 g/dL (12.0-15.0); Mean Corpuscular HGB Conc 30.8 g/dl (32-36); Mean Corpuscular Hemoglobin 24.2 pg (26-34); Mean Corpuscular Volume 78.5 fl (80-100); Mean Platelet Volume 8.8 fl (7.4-10.4); Platelet Count Result 334 k/mm3 (150-375); Red Blood Count 3.35 M/mm3 (4.2-5.4); Red Cell Distribution Width 15.9 % (11.5-14.5); White Blood Count 12.6 K/mm3 (4.5-10.0)
[2021-10-22 05:39] LABS: Anion Gap 9 mmol/L (8-16); Blood Urea Nitrogen 27 mg/dL (7-17); Calcium 8.8 mg/dL (8.4-10.2); Carbon Dioxide 27 mmol/L (22-30); Chloride 104 mmol/L (98-107); Estimated CRCL calculation 17 ml/min; Estimated Glomerular Filt Rate 25; Glucose 116 mg/dL (65-110); Potassium 4.5 mmol/L (3.4-5.0); Sodium 140 mmol/L (137-145)
--- NOTE | 2021-10-22 07:23 | WPDGIPROGNO ---
Progress Note: A&P Assessment and Plan (1) Hematemesis: Code(s): K92.0 - Hematemesis Status: Acute Assessment and Plan: According to the nursing facility where she resides she had hematemesis of dark blood plus clots. her hemoglobin which was 9.5 when she was seen here for recent fall, has dropped to 7.6. She has had no stools yet. She will be given intravenous Reglan to help empty her stomach of any residual contents or blood. Endoscopy will be performed today. 10/22/2021 hemoglobin is stable, 8.1 today (2) Chronic kidney disease: Code(s): N18.9 - Chronic kidney disease, unspecified Status: Acute Assessment and Plan: The creatinine was 2 and BUN 41 earlier this year. the values are actually somewhat better during this hospitalization so far. (3) Gastroesophageal reflux disease: Code(s): K21.9 - Gastro-esophageal reflux disease without esophagitis Status: Acute Assessment and Plan: This is indicated her medical record although she has not to my knowledge on any acid reducing medications. EGD revealed severe ulcerative esophagitis in the distal 5 cm. There was a patch of red blood suggesting recent bleed. This should respond to b.i.d. PPI. After 6 weeks she needs repeat EGD to assess healing. (4) Dementia: Code(s): F03.90 - Unspecified dementia without behavioral disturbance Status: Acute Assessment and Plan: She has dementia. Consequently, unable to get reliable history from her. 10/22/2021 she is calm and comfortable. Apparently on admission she was agitated but I have not seen that in her. (5) Chronic anemia: Code(s): D64.9 - Anemia, unspecified Status: Acute Assessment and Plan: The only be baseline blood count that we have is a hemoglobin of 9.5 from last week. Plan Continue PPI b.i.d., repeat EGD in 6 weeks. Subjective Date/time seen: 10/22/21 07:23 No further evidence of bleeding. She is comfortable. She has been tolerating her diet. I will advance her to regular diet. From my perspective she can be discharged today on PPI b.i.d. for 6 weeks. At that point she needs repeat EGD to assess healing Exam Const: General: comfortable and confusion Orientation/consciousness: patient oriented x3 and confusion HENMT: Mouth: Yes dry mucous membranes Resp: Auscultation: clear to auscultation bilaterally Cardio: Rhythm: regular rhythm GI: Auscultation: normal bowel sounds Neuro: General: patient oriented x3 and confusion Objective Data Vital Signs Vital Signs: Vital Signs - 24 hr 10/21/21 08:16 10/21/21 08:33 10/21/21 08:43 Temperature 36.3 C L Pulse Rate 79 78 72 Respiratory Rate 16 14 15 Blood Pressure 131/50 L 124/54 L 109/52 L Pulse Oximetry 100 97 93 Oxygen Delivery Room Air Room Air Room Air Oxygen Flow Rate 10/21/21 08:53 10/21/21 08:00 10/21/21 12:00 Temperature 36.2 C L Pulse Rate 69 85 Respiratory Rate 14 20 Blood Pressure 140/53 L 140/84 Pulse Oximetry 97 96 Oxygen Delivery Room Air Room Air Oxygen Flow Rate 10/21/21 16:00 10/21/21 20:00 10/21/21 23:35 Temperature 36.1 C L 36.4 C L 36.8 C Pulse Rate 70 88 105 H Respiratory Rate 20 20 20 Blood Pressure 134/58 L 154/59 H 120/54 L Pulse Oximetry 95 97 73 L Oxygen Delivery Oxygen Flow Rate 10/21/21 20:00 10/22/21 00:46 10/22/21 03:10 Temperature 36.4 C Pulse Rate 96 Respiratory Rate 20 Blood Pressure 160/87 H Pulse Oximetry 92 100 Oxygen Delivery Room Air Nasal Cannula Oxygen Flow Rate 5 Intake/Output Intake/Output: Intake & Output 10/19/21 10/20/21 10/21/21 10/22/21 23:59 23:59 23:59 23:59 Intake Total 2340 0 Balance 2340 0 Meds/Results Medications: Active Medications Generic Name Dose Route Start Last Admin Trade Name Freq PRN Reason Stop Dose Admin Acetaminophen 650 mg 10/20/21 22:12 Acetaminophen 325 Mg Tablet PO
[2021-10-22] MEDS: LOSARTAN POTASSIUM 50 MG TABLET PO (08:57)
[2021-10-22] MEDS: traZODone HCL 50 MG TABLET PO ×2 (08:57→17:41)
[2021-10-22] MEDS: PANTOPRAZOLE SODIUM IV 40 MG VIAL IV PUSH ×2 (10:30→22:15)
--- NOTE | 2021-10-22 11:35 | PM.IMPN ---
Progress Note: A&P Assessment and Plan (1) Esophageal ulcer with bleeding: Code(s): K22.11 - Ulcer of esophagus with bleeding Status: Acute Assessment and Plan: Patient had episode of hematemesis at her nursing facility prior to presentation with reportedly 75 cc of dark red blood mixed with clots. Appreciate gastroenterology consultation Underwent EGD on 10/21 which showed multiple benign ulcers visualized in the distal esophagus that were oozing blood as well as reflux and/or Verduzco's esophagitis. Biopsies were collected and are pending Pantoprazole 40 mg b.i.d. Advanced to full liquid diet per GI. Continue to advance as tolerated (2) Pulmonary edema: Code(s): J81.1 - Chronic pulmonary edema Status: Acute Assessment and Plan: Patient with episode of hypoxia overnight. CXR evaluated which revealed pulmonary vascular congestion with diffuse bilateral interstitial pattern most likely secondary to pulmonary edema Likely secondary to overhydration. Symptomatic improvement following diuresis. Received Lasix 40 mg IV 1 time No documented history of CHF, patient unable to provide any additional details Will obtain echocardiogram to evaluate LV function IV fluids have been discontinued Continue Lasix 40 mg IV daily Monitor intake and output, daily weights Monitor SpO2 and wean oxygen as tolerated (3) Anemia: Code(s): D64.9 - Anemia, unspecified Status: Acute Assessment and Plan: Hemoglobin decreased from baseline on arrival Likely secondary to episode of hematemesis No ongoing bleeding H&H remaining stable Continue to monitor (4) Chronic kidney disease: Code(s): N18.9 - Chronic kidney disease, unspecified Status: Acute Assessment and Plan: Renal function appears consistent on review of prior labs Continue to monitor BMP Cautious diuresis (5) Hypertension: Code(s): I10 - Essential (primary) hypertension Status: Acute Assessment and Plan: Blood pressures reviewed and have been stable. Last BP 140/53 Continue home losartan Monitor BP trends (6) Dementia: Code(s): F03.90 - Unspecified dementia without behavioral disturbance Status: Acute Assessment and Plan: At baseline Subjective Date/time seen: 10/22/21 11:35 Interval history: Date of service: 10/22/2021 Stephanie Da Silva is an 86-year-old female with a history of CKD, chronic anemia, hypertension, hyperlipidemia, depression, anxiety, and dementia who is seen in follow-up for hematemesis. The patient is a poor historian due to her dementia and is not able to provide much history. She states she feels ?fine? today. She was frustrated that I turned her TV down so I could hear her. She did not provide any additional responses after that Review of Systems Review of Systems: ROS unobtainable: Yes unobtainable due to mental status Exam Narrative: General: Well-nourished, chronically ill-appearing 86-year-old female, supine in bed, comfortable, NARD Neuro: awake, alert, does not answer any orientation questions, exhibits confusionno focal neuro deficits noted HEENMT: normocephalic, atraumatic, EOMI, sclerae anicteric Respiratory: clear to auscultation anteriorly, nonlabored breathing, would not allow me to auscultate posterior lung de los santos Cardio: regular rate, regular rhythm with S1-S2 Abdomen: nondistended, normoactive bowel sounds, soft, would not allow abdominal palpation Extremities: no edema, erythema, or tenderness to palpation, DP pulses 2+ bilaterally Skin: no rashes or lesions, warm and dry Psych: poor judgment and insight Objective Data Vital Signs Vital Signs: Vital Signs - 24 hr 10/21/21 12:00 10/21/21 16:00 10/21/21 20:00 Temperature 97.2 F L 96.9 F L 97.5 F L Pulse Rate 85 70 88 Respiratory Rate 20 20 20 Blood Pressure 140/84 134/58 L 154/59 H Pulse Oximetry 96 95 97 Oxygen Delivery
[2021-10-23 04:00] VITALS: BP 139/62; PULSE 85; RESP 14; TEMP 36.9; O2SAT 92
[2021-10-23 08:00] VITALS: BP 130/60; PULSE 86; RESP 16; TEMP 36.4; O2SAT 96
[2021-10-23 08:04] LABS: Hematocrit 25.8 % (37.0-47.0); Hemoglobin 7.9 g/dL (12.0-15.0); Mean Corpuscular HGB Conc 30.6 g/dl (32-36); Mean Corpuscular Hemoglobin 24.1 pg (26-34); Mean Corpuscular Volume 78.7 fl (80-100); Mean Platelet Volume 8.8 fl (7.4-10.4); Platelet Count Result 326 k/mm3 (150-375); Red Blood Count 3.28 M/mm3 (4.2-5.4); Red Cell Distribution Width 15.6 % (11.5-14.5); White Blood Count 10.1 K/mm3 (4.5-10.0)
[2021-10-23 08:09] LABS: Anion Gap 10 mmol/L (8-16); Blood Urea Nitrogen 25 mg/dL (7-17); Carbon Dioxide 26 mmol/L (22-30); Chloride 98 mmol/L (98-107); Estimated CRCL calculation 14 ml/min; Estimated Glomerular Filt Rate 20; Glucose 130 mg/dL (65-110); Potassium 3.8 mmol/L (3.4-5.0); Sodium 134 mmol/L (137-145)
[2021-10-23] MEDS: FUROSEMIDE INJ 40 MG/4 ML VIAL IV PUSH (08:45)
[2021-10-23] MEDS: LOSARTAN POTASSIUM 50 MG TABLET PO (08:46)
[2021-10-23] MEDS: traZODone HCL 50 MG TABLET PO ×2 (08:46→16:34)
[2021-10-23] MEDS: PANTOPRAZOLE SODIUM IV 40 MG VIAL IV PUSH ×2 (08:46→21:20)
[2021-10-23 12:00] VITALS: BP 128/68; PULSE 72; RESP 14; TEMP 37.2; O2SAT 96
--- NOTE | 2021-10-23 13:00 | P.PNIM_ITS ---
Progress Note: A&P Assessment and Plan (1) Esophageal ulcer with bleeding: Code(s): K22.11 - Ulcer of esophagus with bleeding Status: Acute Assessment and Plan: Patient had episode of hematemesis at her nursing facility prior to presentation with reportedly 75 cc of dark red blood mixed with clots. * Appreciate gastroenterology consultation * Underwent EGD on 10/21 which showed multiple benign ulcers visualized in the distal esophagus that were oozing blood as well as reflux and/or Verduzco's esophagitis. Biopsies were collected and are pending * Pantoprazole 40 mg b.i.d. * Advanced to full liquid diet per GI. Continue to advance as tolerated (2) Pulmonary edema: Code(s): J81.1 - Chronic pulmonary edema Status: Acute Assessment and Plan: Patient with episode of hypoxia overnight on 10/21. CXR evaluated which revealed pulmonary vascular congestion with diffuse bilateral interstitial pattern most likely secondary to pulmonary edema * Likely secondary to overhydration. * Symptomatic improvement following diuresis. Received Lasix 40 mg IV x3 doses * No documented history of CHF, patient unable to provide any additional details * Echocardiogram completed on 10/22 showed normal EF 65-70% with indeterminate diastolic function * IV fluids have been discontinued * Patient appears euvolemic at this time. Will discontinue IV Lasix * Monitor intake and output, daily weights * Maintaining adequate oxygen saturation on room air (3) Chronic kidney disease: Code(s): N18.9 - Chronic kidney disease, unspecified Status: Acute Assessment and Plan: Bump in creatinine today up to 2.3 * Suspect secondary to IV diuresis. Lasix has been discontinued * Will avoid IV fluids at this time given pulmonary edema * Hopefully creatinine will trend back to baseline with discontinuation of Lasix * Hold losartan * Continue to monitor BMP (4) Anemia: Code(s): D64.9 - Anemia, unspecified Status: Acute Assessment and Plan: Hemoglobin decreased from baseline on arrival * Likely secondary to episode of hematemesis * No ongoing bleeding * H&H remaining stable * Continue to monitor (5) Hypertension: Code(s): I10 - Essential (primary) hypertension Status: Acute Assessment and Plan: Blood pressures reviewed and have been stable. Last BP 128/60 * Hold home losartan given bump in creatinine * Monitor BP trends (6) Dementia: Code(s): F03.90 - Unspecified dementia without behavioral disturbance Status: Acute Assessment and Plan: At baseline Subjective Date/time seen: 10/23/21 13:00 Interval history: Date of service: 10/23/2021 Stephanie Da Silva is an 86-year-old female with a history of CKD, chronic anemia, hypertension, hyperlipidemia, depression, anxiety, and dementia who is seen in follow-up for hematemesis. The patient is a poor historian due to her dementia and is not able to provide much history. She states she feels fine. She shakes her head no when asked about SOB, chest pain, abdominal pain. She does not answer any additional questions. Review of Systems Review of Systems: All systems reviewed & are unremarkable except as noted in HPI and below Exam Narrative: General: Well-nourished, chronically ill-appearing 86-year-old female, supine in bed, comfortable, NARD Neuro: awake, alert, does not answer any orientation questions, exhibits confusion, no focal neuro deficits noted
--- NOTE | 2021-10-23 13:00 | PM.IMPN ---
Progress Note: A&P Assessment and Plan (1) Esophageal ulcer with bleeding: Code(s): K22.11 - Ulcer of esophagus with bleeding Status: Acute Assessment and Plan: Patient had episode of hematemesis at her nursing facility prior to presentation with reportedly 75 cc of dark red blood mixed with clots. Appreciate gastroenterology consultation Underwent EGD on 10/21 which showed multiple benign ulcers visualized in the distal esophagus that were oozing blood as well as reflux and/or Verduzco's esophagitis. Biopsies were collected and are pending Pantoprazole 40 mg b.i.d. Advanced to full liquid diet per GI. Continue to advance as tolerated (2) Pulmonary edema: Code(s): J81.1 - Chronic pulmonary edema Status: Acute Assessment and Plan: Patient with episode of hypoxia overnight on 10/21. CXR evaluated which revealed pulmonary vascular congestion with diffuse bilateral interstitial pattern most likely secondary to pulmonary edema Likely secondary to overhydration. Symptomatic improvement following diuresis. Received Lasix 40 mg IV x3 doses No documented history of CHF, patient unable to provide any additional details Echocardiogram completed on 10/22 showed normal EF 65-70% with indeterminate diastolic function IV fluids have been discontinued Patient appears euvolemic at this time. Will discontinue IV Lasix Monitor intake and output, daily weights Maintaining adequate oxygen saturation on room air (3) Chronic kidney disease: Code(s): N18.9 - Chronic kidney disease, unspecified Status: Acute Assessment and Plan: Bump in creatinine today up to 2.3 Suspect secondary to IV diuresis. Lasix has been discontinued Will avoid IV fluids at this time given pulmonary edema Hopefully creatinine will trend back to baseline with discontinuation of Lasix Hold losartan Continue to monitor BMP (4) Anemia: Code(s): D64.9 - Anemia, unspecified Status: Acute Assessment and Plan: Hemoglobin decreased from baseline on arrival Likely secondary to episode of hematemesis No ongoing bleeding H&H remaining stable Continue to monitor (5) Hypertension: Code(s): I10 - Essential (primary) hypertension Status: Acute Assessment and Plan: Blood pressures reviewed and have been stable. Last BP 128/60 Hold home losartan given bump in creatinine Monitor BP trends (6) Dementia: Code(s): F03.90 - Unspecified dementia without behavioral disturbance Status: Acute Assessment and Plan: At baseline Subjective Date/time seen: 10/23/21 13:00 Interval history: Date of service: 10/23/2021 Stephanie Da Silva is an 86-year-old female with a history of CKD, chronic anemia, hypertension, hyperlipidemia, depression, anxiety, and dementia who is seen in follow-up for hematemesis. The patient is a poor historian due to her dementia and is not able to provide much history. She states she feels fine. She shakes her head no when asked about SOB, chest pain, abdominal pain. She does not answer any additional questions. Review of Systems Review of Systems: All systems reviewed & are unremarkable except as noted in HPI and below Exam Narrative: General: Well-nourished, chronically ill-appearing 86-year-old female, supine in bed, comfortable, NARD Neuro: awake, alert, does not answer any orientation questions, exhibits confusion, no focal neuro deficits noted HEENMT: normocephalic, atraumatic, EOMI, sclerae anicteric Respiratory: clear to auscultation anteriorly, nonlabored breathing, would not allow me to auscultate posterior lung de los santos Cardio: regular rate, regular rhythm with S1-S2 Abdomen: nondistended, normoactive bowel sounds, soft, would not allow abdominal palpation Extremities: no edema or erythema, would not allow palpation. Skin: no rashes or lesions, warm and dry Psych: poor judgment and insight [place]
[2021-10-23 16:00] VITALS: BP 132/68; PULSE 84; RESP 16; TEMP 36.4; O2SAT 96
[2021-10-23 20:00] VITALS: BP 108/42; PULSE 86; RESP 20; TEMP 36.9; O2SAT 97
[2021-10-24] VITALS: BP 102/45; PULSE 75; RESP 20; TEMP 36.8; O2SAT 95
[2021-10-24 04:00] VITALS: BP 104/48; PULSE 77; RESP 20; TEMP 36.7; O2SAT 96
--- NOTE | 2021-10-24 07:22 | WPDGIPROGNO ---
Progress Note: A&P Assessment and Plan (1) Hematemesis: Code(s): K92.0 - Hematemesis Status: Acute Assessment and Plan: According to the nursing facility where she resides she had hematemesis of dark blood plus clots. her hemoglobin which was 9.5 when she was seen here for recent fall, has dropped to 7.6. She has had no stools yet. She will be given intravenous Reglan to help empty her stomach of any residual contents or blood. Endoscopy will be performed today. 10/22/2021 hemoglobin is stable, 8.1 today 10/24/2021 no further bleeding. Hemoglobin is stable, 7.9 today. (2) Chronic kidney disease: Code(s): N18.9 - Chronic kidney disease, unspecified Status: Acute Assessment and Plan: The creatinine was 2 and BUN 41 earlier this year. the values are actually somewhat better during this hospitalization so far. (3) Gastroesophageal reflux disease: Code(s): K21.9 - Gastro-esophageal reflux disease without esophagitis Status: Acute Assessment and Plan: This is indicated her medical record although she has not to my knowledge on any acid reducing medications. EGD revealed severe ulcerative esophagitis in the distal 5 cm. There was a patch of red blood suggesting recent bleed. This should respond to b.i.d. PPI. After 6 weeks she needs repeat EGD to assess healing. (4) Dementia: Code(s): F03.90 - Unspecified dementia without behavioral disturbance Status: Acute Assessment and Plan: She has dementia. Consequently, unable to get reliable history from her. 10/22/2021 she is calm and comfortable. Apparently on admission she was agitated but I have not seen that in her. (5) Chronic anemia: Code(s): D64.9 - Anemia, unspecified Status: Acute Assessment and Plan: The only be baseline blood count that we have is a hemoglobin of 9.5 from last week. Plan Continue PPI b.i.d., repeat EGD in 6 weeks. Subjective Date/time seen: 10/24/21 07:22 she is taciturn today. She simply shakes her head no in response to any questions. She is comfortable. There has been no evidence of bleeding. Because of the marked ulceration of her esophagus, did not take biopsies. Consequently we will have her repeat an EGD as an outpatient in 6 weeks to assess healing and also to rule out Verduzco's, etc. Exam Const: General: comfortable and confusion Orientation/consciousness: patient oriented x3 and confusion HENMT: Mouth: Yes dry mucous membranes Resp: Auscultation: clear to auscultation bilaterally Cardio: Rhythm: regular rhythm GI: GI Palp: No abdominal tenderness and Yes Soft to palpation Auscultation: normal bowel sounds Neuro: General: patient oriented x3 and confusion Objective Data Vital Signs Vital Signs: Vital Signs - 24 hr 10/23/21 08:00 10/23/21 12:00 10/23/21 16:00 Temperature 36.4 C 37.2 C 36.4 C Pulse Rate 86 72 84 Respiratory Rate 16 14 16 Blood Pressure 130/60 128/68 132/68 Pulse Oximetry 96 96 96 10/23/21 20:00 10/24/21 00:00 10/24/21 04:00 Temperature 36.9 C 36.8 C 36.7 C Pulse Rate 86 75 77 Respiratory Rate 20 20 20 Blood Pressure 108/42 L 102/45 L 104/48 L Pulse Oximetry 97 95 96 Intake/Output Intake/Output: Intake & Output 10/21/21 10/22/21 10/23/21 10/24/21 23:59 23:59 23:59 23:59 Intake Total 2340 1480 1950 Balance 2340 1480 1950 Meds/Results Medications: Active Medications Generic Name Dose Route Start Last Admin Trade Name Freq PRN Reason Stop Dose Admin Acetaminophen 650 mg 10/20/21 22:12 Acetaminophen 325 Mg Tablet PO Q6H PRN Mild Pain (1-3) or Fever Losartan Potassium 50 mg 10/21/21 09:00 10/23/21 08:46 Losartan Potassium 50 Mg Tablet PO 50 mg DAILY CHEYENNE Administration Pantoprazole Sodium 40 mg 10/21/21 09:00 10/23/21 21:20 Pantoprazole Sodium Iv 40 Mg Vial IV PUSH 40 mg Q12HR CHEYENNE Administration Perflutren
[2021-10-24 08:00] VITALS: BP 122/50; TEMP 37
[2021-10-24 08:49] LABS: Hematocrit 25.1 % (37.0-47.0); Mean Corpuscular HGB Conc 31.9 g/dl (32-36); Mean Corpuscular Hemoglobin 24.5 pg (26-34); Mean Platelet Volume 8.9 fl (7.4-10.4); Platelet Count Result 317 k/mm3 (150-375); Red Blood Count 3.26 M/mm3 (4.2-5.4); Red Cell Distribution Width 15.6 % (11.5-14.5); White Blood Count 10.5 K/mm3 (4.5-10.0)
[2021-10-24 09:04] LABS: Anion Gap 14 mmol/L (8-16); Blood Urea Nitrogen 36 mg/dL (7-17); Calcium 9.2 mg/dL (8.4-10.2); Carbon Dioxide 24 mmol/L (22-30); Chloride 95 mmol/L (98-107); Estimated CRCL calculation 13 ml/min; Estimated Glomerular Filt Rate 17; Glucose 133 mg/dL (65-110); Potassium 4.1 mmol/L (3.4-5.0); Sodium 133 mmol/L (137-145)
[2021-10-24] MEDS: PANTOPRAZOLE SODIUM IV 40 MG VIAL IV PUSH ×2 (10:24→20:41)
--- NOTE | 2021-10-24 12:12 | PC.NURSE ---
Spoke with Bren at 1045 to let her know that patient refused to take her 0900 trazadone.
--- NOTE | 2021-10-24 14:57 | P.PNIM_ITS ---
Progress Note: A&P Assessment and Plan (1) Esophageal ulcer with bleeding: Code(s): K22.11 - Ulcer of esophagus with bleeding Status: Acute Assessment and Plan: Patient had episode of hematemesis at her nursing facility prior to presentation with dark red blood mixed with clots. * Appreciate gastroenterology consultation * Underwent EGD on 10/21 which showed multiple benign ulcers visualized in the distal esophagus that were oozing blood as well as reflux and/or Verduzco's esophagitis. No biopsies collected due to ulceration * Pantoprazole 40 mg b.i.d. * Will need outpatient repeat EGD in 6 weeks to assess for improvement (2) Pulmonary edema: Code(s): J81.1 - Chronic pulmonary edema Status: Acute Assessment and Plan: Patient with episode of hypoxia overnight on 10/21. CXR evaluated which revealed pulmonary vascular congestion with diffuse bilateral interstitial pattern most likely secondary to pulmonary edema * Likely secondary to overhydration. * Symptomatic improvement following diuresis. Received Lasix 40 mg IV x3 doses * No documented history of CHF, patient unable to provide any additional details * Echocardiogram completed on 10/22 showed normal EF 65-70% with indeterminate diastolic function * Patient appears euvolemic at this time. * Monitor intake and output, daily weights * Maintaining adequate oxygen saturation on room air (3) Pnhmz-nd-dhwgtis kidney injury: Code(s): N17.9 - Acute kidney failure, unspecified; N18.9 - Chronic kidney disease, unspecified Status: Acute Assessment and Plan: Bump in creatinine today up to 2.6 * Suspect secondary to IV diuresis. Lasix has been discontinued * Will avoid IV fluids at this time given pulmonary edema * Hopefully creatinine will trend back to baseline with discontinuation of Lasix * Hold losartan * Discussed with residence counselor Dr. Norman. Plan for nephrology consultation if no improvement/worsening on AM labs tomorrow * Continue to monitor BMP (4) Anemia: Code(s): D64.9 - Anemia, unspecified Status: Acute Assessment and Plan: Hemoglobin decreased from baseline on arrival * Likely secondary to episode of hematemesis * No ongoing bleeding * H&H remaining stable * Continue to monitor (5) Hypertension: Code(s): I10 - Essential (primary) hypertension Status: Acute Assessment and Plan: Blood pressures reviewed and have been stable. Last BP 122/50 * Hold home losartan given bump in creatinine * Monitor BP trends (6) Dementia: Code(s): F03.90 - Unspecified dementia without behavioral disturbance Status: Acute Assessment and Plan: At baseline Subjective Date/time seen: 10/24/21 14:57 Interval history: Date of service: 10/24/2021 Stephanie Da Silva is an 86-year-old female with a history of CKD, chronic anemia, hypertension, hyperlipidemia, depression, anxiety, and dementia who is seen in follow-up for hematemesis. The patient does not participate in conversation at all today and does not provide any verbal responses. Review of Systems Review of Systems: ROS unobtainable: Yes unobtainable due to mental status Exam Narrative: General: Well-nourished, chronically ill-appearing 86-year-old female, supine in bed, comfortable, NARD Neuro: awake, alert, does not respond to questions, exhibits confusion, no focal neuro deficits noted HEENMT: normocephalic, atraumatic, EOMI, sclerae anicteric Respirator
--- NOTE | 2021-10-24 14:57 | PM.IMPN ---
Progress Note: A&P Assessment and Plan (1) Esophageal ulcer with bleeding: Code(s): K22.11 - Ulcer of esophagus with bleeding Status: Acute Assessment and Plan: Patient had episode of hematemesis at her nursing facility prior to presentation with dark red blood mixed with clots. Appreciate gastroenterology consultation Underwent EGD on 10/21 which showed multiple benign ulcers visualized in the distal esophagus that were oozing blood as well as reflux and/or Verduzco's esophagitis. No biopsies collected due to ulceration Pantoprazole 40 mg b.i.d. Will need outpatient repeat EGD in 6 weeks to assess for improvement (2) Pulmonary edema: Code(s): J81.1 - Chronic pulmonary edema Status: Acute Assessment and Plan: Patient with episode of hypoxia overnight on 10/21. CXR evaluated which revealed pulmonary vascular congestion with diffuse bilateral interstitial pattern most likely secondary to pulmonary edema Likely secondary to overhydration. Symptomatic improvement following diuresis. Received Lasix 40 mg IV x3 doses No documented history of CHF, patient unable to provide any additional details Echocardiogram completed on 10/22 showed normal EF 65-70% with indeterminate diastolic function Patient appears euvolemic at this time. Monitor intake and output, daily weights Maintaining adequate oxygen saturation on room air (3) Bqvpx-rm-mxkoggr kidney injury: Code(s): N17.9 - Acute kidney failure, unspecified; N18.9 - Chronic kidney disease, unspecified Status: Acute Assessment and Plan: Bump in creatinine today up to 2.6 Suspect secondary to IV diuresis. Lasix has been discontinued Will avoid IV fluids at this time given pulmonary edema Hopefully creatinine will trend back to baseline with discontinuation of Lasix Hold losartan Discussed with cigarette tipper Dr. Norman. Plan for nephrology consultation if no improvement/worsening on AM labs tomorrow Continue to monitor BMP (4) Anemia: Code(s): D64.9 - Anemia, unspecified Status: Acute Assessment and Plan: Hemoglobin decreased from baseline on arrival Likely secondary to episode of hematemesis No ongoing bleeding H&H remaining stable Continue to monitor (5) Hypertension: Code(s): I10 - Essential (primary) hypertension Status: Acute Assessment and Plan: Blood pressures reviewed and have been stable. Last BP 122/50 Hold home losartan given bump in creatinine Monitor BP trends (6) Dementia: Code(s): F03.90 - Unspecified dementia without behavioral disturbance Status: Acute Assessment and Plan: At baseline Subjective Date/time seen: 10/24/21 14:57 Interval history: Date of service: 10/24/2021 Stephanie Da Silva is an 86-year-old female with a history of CKD, chronic anemia, hypertension, hyperlipidemia, depression, anxiety, and dementia who is seen in follow-up for hematemesis. The patient does not participate in conversation at all today and does not provide any verbal responses. Review of Systems Review of Systems: ROS unobtainable: Yes unobtainable due to mental status Exam Narrative: General: Well-nourished, chronically ill-appearing 86-year-old female, supine in bed, comfortable, NARD Neuro: awake, alert, does not respond to questions, exhibits confusion, no focal neuro deficits noted HEENMT: normocephalic, atraumatic, EOMI, sclerae anicteric Respiratory: clear to auscultation anteriorly, nonlabored breathing, would not allow me to auscultate posterior lung de los santos Cardio: would not allow cardiac auscultation Abdomen: nondistended, normoactive bowel sounds, soft, nontender to palpation Extremities: no edema or erythema, would not allow palpation. Skin: no rashes or lesions, warm and dry Psych: poor judgment and insight Objective Data Vital Signs Vital Signs: Vital Signs - 24 hr 10/23/21 16:00 10/23/21
[2021-10-24 19:39] VITALS: BP 123/49; PULSE 77; RESP 16; TEMP 36.2; O2SAT 97
[2021-10-25 00:15] VITALS: BP 100/52; PULSE 68; RESP 18; TEMP 36.4; O2SAT 96
[2021-10-25 04:30] VITALS: BP 139/59; PULSE 78; RESP 18; TEMP 36.6; O2SAT 97
[2021-10-25] MEDS: PANTOPRAZOLE SODIUM IV 40 MG VIAL IV PUSH ×2 (08:02→21:38)
[2021-10-25 09:11] LABS: Hematocrit 25.9 % (37.0-47.0); Mean Corpuscular HGB Conc 30.9 g/dl (32-36); Mean Corpuscular Hemoglobin 24.4 pg (26-34); Mean Platelet Volume 8.6 fl (7.4-10.4); Platelet Count Result 317 k/mm3 (150-375); Red Blood Count 3.28 M/mm3 (4.2-5.4); Red Cell Distribution Width 15.8 % (11.5-14.5); White Blood Count 9.5 K/mm3 (4.5-10.0)
[2021-10-25 09:24] LABS: Anion Gap 12 mmol/L (8-16); Blood Urea Nitrogen 40 mg/dL (7-17); Calcium 8.8 mg/dL (8.4-10.2); Carbon Dioxide 24 mmol/L (22-30); Chloride 103 mmol/L (98-107); Estimated CRCL calculation 12 ml/min; Estimated Glomerular Filt Rate 16; Glucose 131 mg/dL (65-110); Potassium 4.1 mmol/L (3.4-5.0); Sodium 139 mmol/L (137-145)
[2021-10-25 10:40] VITALS: BP 121/51; PULSE 78; RESP 16; TEMP 36.2; O2SAT 97
--- NOTE | 2021-10-25 13:57 | P.PNIM_ITS ---
Progress Note: A&P Assessment and Plan (1) Esophageal ulcer with bleeding: Code(s): K22.11 - Ulcer of esophagus with bleeding Status: Acute Assessment and Plan: Patient had episode of hematemesis at her nursing facility prior to presentation with dark red blood mixed with clots. * Appreciate gastroenterology consultation * Underwent EGD on 10/21 which showed multiple benign ulcers visualized in the distal esophagus that were oozing blood as well as reflux and/or Verduzco's esophagitis. No biopsies collected due to ulceration * Pantoprazole 40 mg b.i.d. * Will need outpatient repeat EGD in 6 weeks to assess for improvement (2) Pulmonary edema: Code(s): J81.1 - Chronic pulmonary edema Status: Acute Assessment and Plan: Patient with episode of hypoxia overnight on 10/21. CXR evaluated which revealed pulmonary vascular congestion with diffuse bilateral interstitial pattern most likely secondary to pulmonary edema * Likely secondary to overhydration. * Symptomatic improvement following diuresis. Received Lasix 40 mg IV x3 doses * No documented history of CHF, patient unable to provide any additional details * Echocardiogram completed on 10/22 showed normal EF 65-70% with indeterminate diastolic function * Patient appears euvolemic at this time. * Monitor intake and output, daily weights * Maintaining adequate oxygen saturation on room air (3) Maejo-qd-oldlyoo kidney injury: Code(s): N17.9 - Acute kidney failure, unspecified; N18.9 - Chronic kidney disease, unspecified Status: Acute Assessment and Plan: Bump in creatinine today up to 2.8 * Suspect secondary to IV diuresis. Lasix has been discontinued * Will avoid IV fluids at this time given pulmonary edema * Bladder scan completed today with 250 cc. Patient is voiding but is incontinent and unable to accurately monitor urine output * Renal ultrasound completed today which showed mild left hydronephrosis and bladder wall thickening with internal debris. * Will check UA * Losartan on hold * Appreciate nephrology consultation (4) Anemia: Code(s): D64.9 - Anemia, unspecified Status: Acute Assessment and Plan: Hemoglobin decreased from baseline on arrival * Likely secondary to episode of hematemesis * No ongoing bleeding * H&H remaining stable * Continue to monitor (5) Hypertension: Code(s): I10 - Essential (primary) hypertension Status: Acute Assessment and Plan: Blood pressures reviewed and have been stable. Last BP 121/51 * Hold home losartan given bump in creatinine * Monitor BP trends (6) Dementia: Code(s): F03.90 - Unspecified dementia without behavioral disturbance Status: Acute Assessment and Plan: At baseline Subjective Date/time seen: 10/25/21 13:57 Interval history: Date of service: 10/25/2021 Stephanie Da Silva is an 86-year-old female with a history of CKD, chronic anemia, hypertension, hyperlipidemia, depression, anxiety, and dementia who is seen in follow-up for hematemesis. The patient is a poor historian. She does not respond to any questions. She does tell me that she wants her breakfast tray. Review of Systems Review of Systems: All systems reviewed & are unremarkable except as noted in HPI and below Exam Narrative: General: Well-nourished, chronically ill-appearing 86-year-old female, supine in bed, comfortable, NARD Neuro: awake, alert, does not respond to questions, exhibit
--- NOTE | 2021-10-25 13:57 | PM.IMPN ---
Progress Note: A&P Assessment and Plan (1) Esophageal ulcer with bleeding: Code(s): K22.11 - Ulcer of esophagus with bleeding Status: Acute Assessment and Plan: Patient had episode of hematemesis at her nursing facility prior to presentation with dark red blood mixed with clots. Appreciate gastroenterology consultation Underwent EGD on 10/21 which showed multiple benign ulcers visualized in the distal esophagus that were oozing blood as well as reflux and/or Verduzco's esophagitis. No biopsies collected due to ulceration Pantoprazole 40 mg b.i.d. Will need outpatient repeat EGD in 6 weeks to assess for improvement (2) Pulmonary edema: Code(s): J81.1 - Chronic pulmonary edema Status: Acute Assessment and Plan: Patient with episode of hypoxia overnight on 10/21. CXR evaluated which revealed pulmonary vascular congestion with diffuse bilateral interstitial pattern most likely secondary to pulmonary edema Likely secondary to overhydration. Symptomatic improvement following diuresis. Received Lasix 40 mg IV x3 doses No documented history of CHF, patient unable to provide any additional details Echocardiogram completed on 10/22 showed normal EF 65-70% with indeterminate diastolic function Patient appears euvolemic at this time. Monitor intake and output, daily weights Maintaining adequate oxygen saturation on room air (3) Juffb-mv-obzxhyk kidney injury: Code(s): N17.9 - Acute kidney failure, unspecified; N18.9 - Chronic kidney disease, unspecified Status: Acute Assessment and Plan: Bump in creatinine today up to 2.8 Suspect secondary to IV diuresis. Lasix has been discontinued Will avoid IV fluids at this time given pulmonary edema Bladder scan completed today with 250 cc. Patient is voiding but is incontinent and unable to accurately monitor urine output Renal ultrasound completed today which showed mild left hydronephrosis and bladder wall thickening with internal debris. Will check UA Losartan on hold Appreciate nephrology consultation (4) Anemia: Code(s): D64.9 - Anemia, unspecified Status: Acute Assessment and Plan: Hemoglobin decreased from baseline on arrival Likely secondary to episode of hematemesis No ongoing bleeding H&H remaining stable Continue to monitor (5) Hypertension: Code(s): I10 - Essential (primary) hypertension Status: Acute Assessment and Plan: Blood pressures reviewed and have been stable. Last BP 121/51 Hold home losartan given bump in creatinine Monitor BP trends (6) Dementia: Code(s): F03.90 - Unspecified dementia without behavioral disturbance Status: Acute Assessment and Plan: At baseline Subjective Date/time seen: 10/25/21 13:57 Interval history: Date of service: 10/25/2021 Stephanie Da Silva is an 86-year-old female with a history of CKD, chronic anemia, hypertension, hyperlipidemia, depression, anxiety, and dementia who is seen in follow-up for hematemesis. The patient is a poor historian. She does not respond to any questions. She does tell me that she wants her breakfast tray. Review of Systems Review of Systems: All systems reviewed & are unremarkable except as noted in HPI and below Exam Narrative: General: Well-nourished, chronically ill-appearing 86-year-old female, supine in bed, comfortable, NARD Neuro: awake, alert, does not respond to questions, exhibits confusion, no focal neuro deficits noted HEENMT: normocephalic, atraumatic, EOMI, sclerae anicteric Respiratory: clear to auscultation anteriorly, nonlabored breathing, would not allow me to auscultate posterior lung de los santos Cardio: would not allow cardiac auscultation Abdomen: nondistended, normoactive bowel sounds, soft, nontender to palpation Extremities: no edema or erythema Skin: no rashes or lesions, warm and dry Psych: poor judgment and insight Objective
[2021-10-25 14:15] VITALS: BP 144/54; PULSE 74; RESP 16; TEMP 36.6; O2SAT 97
--- NOTE | 2021-10-25 16:42 | PM.CNNEP ---
Assessment and Plan Assessment and plan (1) Nllsu-kk-dmrcpwu kidney injury: Code(s): N17.9 - Acute kidney failure, unspecified; N18.9 - Chronic kidney disease, unspecified Status: Acute Assessment and Plan: The patient has chronic kidney disease. This is most likely due to hypertension and vascular disease. Will check urinalysis as a screen for other diseases. Considering her significant morbidities I will not do an extensive workup for this. The patient has acute kidney injury as well. She has received no contrast. She was on losartan but she this should not do it by itself because is a chronic medication. The patient was on diuretics. The creatinine can sometimes rise in this circumstance if she had a rapid diuresis. She does not look overly dehydrated though. This is not cardiorenal syndrome because an echocardiogram was normal. She is not on any new medications. The ultrasound shows mild unilateral hydronephrosis. Bladder ultrasound shows some debris consistent with a UTI. Will check a urinalysis and culture. Will also check urine electrolytes. Will check a CPK. Continue to hold the diuretics for now since the patient is comfortable. (2) Pulmonary edema: Code(s): J81.1 - Chronic pulmonary edema Status: Acute Assessment and Plan: The patient was hypoxic and chest x-ray showed fluid. The patient had an echocardiogram which showed normal LV function. This responded to diuretics. Repeat chest x-ray tomorrow morning (3) Esophageal ulcer with bleeding: Code(s): K22.11 - Ulcer of esophagus with bleeding Status: Acute Assessment and Plan: Patient had the EGD done showing this. She is on a PPI (4) Dementia: Code(s): F03.90 - Unspecified dementia without behavioral disturbance Status: Acute (5) Anemia: Code(s): D64.9 - Anemia, unspecified Status: Acute Assessment and Plan: Hemoglobin has been stable since she got here. Will check iron levels. (6) Hypertension: Code(s): I10 - Essential (primary) hypertension Status: Acute History of Present Illness Reason for Consult Consult date: 10/25/21 Chief Complaint Chief complaint: GI Bleed History of Present Illness Narrative: Stephanie is an unfortunate 86-year-old lady who has multiple medical problems including chronic kidney disease with a baseline creatinine of 1.8, dementia, GERD, hyperlipidemia, vitamin-D deficiency, hypertension, depression, and anemia. The patient came to the emergency room earlier this month. She was sent because the care home witnessed projectile vomiting with blood and clots. The patient was seen in the emergency room. Hemoglobin was a little lower than it had been. Patient herself had no complaints but she has severe dementia and anxiety. She was admitted to the floor. Dr. Hassan saw the patient and did an EGD. He found esophageal ulcers and reflux esophagitis. She is on high-dose IV pantoprazole and IV Reglan. Since the scope there has been no more bleeding. Later in the hospital stay the patient developed hypoxia and shortness of breath. Chest x-ray was done which showed volume overload. She was given IV diuretics. The next day her creatinine was up a little bit so the diuretics were held and the losartan was discontinued. The creatinine jocelin again yesterday to 2.7 then today 2.8 so renal consultation was requested. The patient can not give a history. The only word she said immediate was ?all over? when I asked if she had pain. She nodded her head yes and no when asked some yes no questions but she answered yes to opposing questions so I do not think she understands what I am asking her. The patient does have a past history of chronic kidney disease. Her creatinine baseline is around 1.8 as this was the number in April. Back in 2019 her creatinine values were 1 and 1.2. Her electrolytes have generally been okay. Potassium and
[2021-10-25 18:30] VITALS: BP 118/67; PULSE 74; RESP 16; TEMP 36.1; O2SAT 98
[2021-10-25 19:23] LABS: Creatine Kinase 42 U/L (30-135)
[2021-10-25 20:00] VITALS: BP 141/55; PULSE 78; PULSE 80; RESP 18; TEMP 36; O2SAT 100; O2SAT 93
[2021-10-25 20:07] LABS: Appearance Urine Cloudy (Clear); Bilirubin Urine Negative (Negative); Blood Urine 2+ (Negative); Color Urine Yellow (Yellow); Glucose Urine UA Negative (Negative); Ketones Urine Trace mg/dL (Negative); Leukocyte Esterase Ur 3+ LEU/UL (NEGATIVE); Nitrate Urine Negative (Negative); Protein Urine 3+ mg/dL (Negative); Specific Grav Ur 1.025 (1.001-1.035); Urobilinogen Urine 0.2 mg/dL (<2.0)
[2021-10-25 20:08] LABS: Creatinine Urine 71.9 mg/dL; Total Protein Urine Random 193 mg/dL; Ur Ttl Prot Creatinine Ratio 2.68 mg/mg (0-0.20)
[2021-10-25 20:10] LABS: Sodium Urine Random 65 meq/L
[2021-10-25 20:12] LABS: Bacteria Urine 3+ /hpf; Mucus Urine Heavy /lpf; WBC Urine >75 /hpf (0-3)
[2021-10-25 20:14] LABS: Add Urine Microscopic? YES
[2021-10-25 21:18] LABS: Iron 23 ug/dL (37-170)
[2021-10-25 21:31] LABS: Percent Iron Saturation 6 % (20-50)
[2021-10-25] MEDS: traZODone HCL 50 MG TABLET PO (21:38)
[2021-10-26] VITALS: BP 137/61; PULSE 78; RESP 18; TEMP 36; O2SAT 93
[2021-10-26 02:57] VITALS: BP 128/89; PULSE 72; RESP 20; TEMP 36.1; O2SAT 98
[2021-10-26 05:42] LABS: Albumin Level 4.1 g/dL (3.5-5.1); Anion Gap 11 mmol/L (8-16); Blood Urea Nitrogen 38 mg/dL (7-17); Calcium 9.5 mg/dL (8.4-10.2); Carbon Dioxide 26 mmol/L (22-30); Chloride 100 mmol/L (98-107); Estimated CRCL calculation 13 ml/min; Estimated Glomerular Filt Rate 18; Glucose 113 mg/dL (65-110); Phosphorus 4.7 mg/dL (2.5-4.5); Potassium 4.8 mmol/L (3.4-5.0); Sodium 137 mmol/L (137-145)
[2021-10-26 08:00] VITALS: BP 119/71; PULSE 74; RESP 16; TEMP 36.2; O2SAT 98
--- NOTE | 2021-10-26 08:38 | PM.PNNEP ---
Progress Note: A&P Assessment and Plan (1) Senuz-kg-rydymfy kidney injury: Code(s): N17.9 - Acute kidney failure, unspecified; N18.9 - Chronic kidney disease, unspecified Status: Acute Assessment and Plan: The patient has chronic kidney disease. This is most likely due to hypertension and vascular disease. UA shows lots of leukocytes. She has 2.68g of protein per g of creatinine. Will check urinalysis as a screen for other diseases. Considering her significant morbidities I will not do an extensive workup for this. The patient has acute kidney injury as well. She has received no contrast. She was on losartan but she this should not do it by itself because is a chronic medication. The patient was on diuretics. The creatinine can sometimes rise in this circumstance if she had a rapid diuresis. She does not look overly dehydrated though. This is not cardiorenal syndrome because an echocardiogram was normal. She is not on any new medications. The ultrasound shows mild left hydronephrosis. Bladder ultrasound shows some debris consistent with a UTI. UA shows bladder infection. Culture is pending Chest x-ray from today is pending. CPK is normal Urine electrolytes are non pre renal Her creatinine is better. Will continue to hold the diuretics. Will start Cipro. Repeat a renal panel tomorrow (2) Pulmonary edema: Code(s): J81.1 - Chronic pulmonary edema Status: Acute Assessment and Plan: The patient was hypoxic and chest x-ray showed fluid. The patient had an echocardiogram which showed normal LV function. This responded to diuretics. Repeat chest x-ray pending (3) Esophageal ulcer with bleeding: Code(s): K22.11 - Ulcer of esophagus with bleeding Status: Acute Assessment and Plan: Patient had the EGD done showing this. She is on a PPI (4) Dementia: Code(s): F03.90 - Unspecified dementia without behavioral disturbance Status: Acute (5) Anemia: Code(s): D64.9 - Anemia, unspecified Status: Acute Assessment and Plan: Hemoglobin has been stable since she got here. Iron levels show a low TSAT. She is getting antibiotics so will hold off on iron therapy right now. (6) Hypertension: Code(s): I10 - Essential (primary) hypertension Status: Acute Assessment and Plan: Blood pressure is well controlled with a systolic of 128 Subjective Date/time seen: 10/26/21 08:38 Interval history: Stephanie looks about the same today. She still resists examination. She did allow me to listen to her heart lungs and belly. Exam Narrative: WDWN in NAD skin no rash head ncat lungs clear cor reg no rub abd BS+ nontender and soft ext no edema. Objective Data Vital Signs Vital Signs: Vital Signs - 24 hr 10/25/21 10:40 10/25/21 14:15 10/25/21 18:30 Temperature 36.2 C L 36.6 C 36.1 C L Pulse Rate 78 74 74 Respiratory Rate 16 16 16 Blood Pressure 121/51 L 144/54 H 118/67 Pulse Oximetry 97 97 98 Oxygen Delivery 10/25/21 20:00 10/26/21 00:00 10/25/21 20:00 Temperature 36.0 C L 36.0 C L Pulse Rate 80 78 78 Respiratory Rate 18 18 18 Blood Pressure 141/55 H 137/61 Pulse Oximetry 100 93 93 Oxygen Delivery Room Air 10/26/21 02:57 Temperature 36.1 C L Pulse Rate 72 Respiratory Rate 20 Blood Pressure 128/89 Pulse Oximetry 98 Oxygen Delivery Intake/Output Intake/Output: Intake & Output 10/23/21 10/24/21 10/25/21 10/26/21 23:59 23:59 23:59 23:59 Intake Total 1504 117 0576 120 Balance 8857 150 3973 120 Meds/Results Medications: Active Medications Generic Name Dose Route Start Last Admin Trade Name Freq PRN Reason Stop Dose Admin Acetaminophen 650 mg 10/20/21 22:12 Acetaminophen 325 Mg Tablet PO Q6H PRN Mild Pain (1-3) or Fever Losartan Potassium 50 mg 10/21/21 09:00 10/24/21 10:23 Losartan Potassium 50 Mg Tablet PO Not Given DAILY [facility]YENNE Parisi
[2021-10-26] MEDS: PANTOPRAZOLE SODIUM IV 40 MG VIAL IV PUSH ×2 (08:39→20:33)
[2021-10-26] MEDS: traZODone HCL 50 MG TABLET PO ×2 (08:40→16:52)
--- NOTE | 2021-10-26 13:17 | P.PNIM_ITS ---
Progress Note: A&P Assessment and Plan (1) Esophageal ulcer with bleeding: Code(s): K22.11 - Ulcer of esophagus with bleeding Status: Acute Assessment and Plan: Patient had episode of hematemesis at her nursing facility prior to presentation with dark red blood mixed with clots. * Underwent EGD on 10/21 which showed multiple benign ulcers visualized in the distal esophagus that were oozing blood as well as reflux and/or Verduzco's esophagitis. No biopsies collected due to ulceration * Pantoprazole 40 mg b.i.d. * Will need outpatient repeat EGD in 6 weeks to assess for improvement (2) Pulmonary edema: Code(s): J81.1 - Chronic pulmonary edema Status: Acute Assessment and Plan: Patient with episode of hypoxia overnight on 10/21. CXR evaluated which revealed pulmonary vascular congestion with diffuse bilateral interstitial pattern most likely secondary to pulmonary edema * Likely secondary to overhydration. * Symptomatic improvement following diuresis. Received Lasix 40 mg IV x3 doses * No documented history of CHF, patient unable to provide any additional details * Echocardiogram completed on 10/22 showed normal EF 65-70% with indeterminate diastolic function * Patient appears euvolemic at this time. * Monitor intake and output, daily weights * Maintaining adequate oxygen saturation on room air (3) Qnbdu-cd-mktfbls kidney injury: Code(s): N17.9 - Acute kidney failure, unspecified; N18.9 - Chronic kidney disease, unspecified Status: Acute Assessment and Plan: Bump in creatinine today up to 2.8 on 10/25, improved to 2.5 on 10/26. * Suspect secondary to IV diuresis. Lasix has been discontinued * Will avoid IV fluids at this time given pulmonary edema * Likely creatinine will trend back toward baseline with discontinuation of Lasix * Hold losartan * Continue to monitor BMP (4) Anemia: Code(s): D64.9 - Anemia, unspecified Status: Acute Assessment and Plan: Hemoglobin decreased from baseline on arrival * Likely secondary to episode of hematemesis * No ongoing bleeding * H&H remaining stable * Labs c/w Fe deficiency, implying fpc blood loss * IV iron sucrose ordered 10/26 * Continue to monitor (5) Hypertension: Code(s): I10 - Essential (primary) hypertension Status: Acute Assessment and Plan: Blood pressures reviewed and have been stable. * Hold home losartan given bump in creatinine * 10/26 control adequate (6) Dementia: Code(s): F03.90 - Unspecified dementia without behavioral disturbance Status: Acute Assessment and Plan: At baseline Subjective Date/time seen: 10/26/21 13:17 Minimally verbal. No response when ask system review questions. Did spontaneously comment that she liked might belt buckle. Review of Systems Review of Systems: ROS unobtainable: Yes unobtainable due to medical condition Exam Narrative: General: Well-nourished, chronically ill-appearing 86-year-old female, supine in bed, comfortable, NARD Neuro: awake, alert, does not respond to questions, exhibits confusion, no focal neuro deficits noted HEENMT: normocephalic, atraumatic, EOMI, sclerae anicteric Respiratory: clear to auscultation anteriorly, nonlabored breathing, would not allow me to auscultate posterior lung de los santos Cardio: would not allow cardiac auscultation Abdomen: nondistended, normoactive bowel sounds, soft, nontender to palpation Extremities: no edema or erythema Skin: no
--- NOTE | 2021-10-26 13:17 | PM.IMPN ---
Progress Note: A&P Assessment and Plan (1) Esophageal ulcer with bleeding: Code(s): K22.11 - Ulcer of esophagus with bleeding Status: Acute Assessment and Plan: Patient had episode of hematemesis at her nursing facility prior to presentation with dark red blood mixed with clots. Underwent EGD on 10/21 which showed multiple benign ulcers visualized in the distal esophagus that were oozing blood as well as reflux and/or Verduzco's esophagitis. No biopsies collected due to ulceration Pantoprazole 40 mg b.i.d. Will need outpatient repeat EGD in 6 weeks to assess for improvement (2) Pulmonary edema: Code(s): J81.1 - Chronic pulmonary edema Status: Acute Assessment and Plan: Patient with episode of hypoxia overnight on 10/21. CXR evaluated which revealed pulmonary vascular congestion with diffuse bilateral interstitial pattern most likely secondary to pulmonary edema Likely secondary to overhydration. Symptomatic improvement following diuresis. Received Lasix 40 mg IV x3 doses No documented history of CHF, patient unable to provide any additional details Echocardiogram completed on 10/22 showed normal EF 65-70% with indeterminate diastolic function Patient appears euvolemic at this time. Monitor intake and output, daily weights Maintaining adequate oxygen saturation on room air (3) Znmge-wv-mojtjdl kidney injury: Code(s): N17.9 - Acute kidney failure, unspecified; N18.9 - Chronic kidney disease, unspecified Status: Acute Assessment and Plan: Bump in creatinine today up to 2.8 on 10/25, improved to 2.5 on 10/26. Suspect secondary to IV diuresis. Lasix has been discontinued Will avoid IV fluids at this time given pulmonary edema Likely creatinine will trend back toward baseline with discontinuation of Lasix Hold losartan Continue to monitor BMP (4) Anemia: Code(s): D64.9 - Anemia, unspecified Status: Acute Assessment and Plan: Hemoglobin decreased from baseline on arrival Likely secondary to episode of hematemesis No ongoing bleeding H&H remaining stable Labs c/w Fe deficiency, implying intermediate frame tender blood loss IV iron sucrose ordered 10/26 Continue to monitor (5) Hypertension: Code(s): I10 - Essential (primary) hypertension Status: Acute Assessment and Plan: Blood pressures reviewed and have been stable. Hold home losartan given bump in creatinine 10/26 control adequate (6) Dementia: Code(s): F03.90 - Unspecified dementia without behavioral disturbance Status: Acute Assessment and Plan: At baseline Subjective Date/time seen: 10/26/21 13:17 Minimally verbal. No response when ask system review questions. Did spontaneously comment that she liked might belt buckle. Review of Systems Review of Systems: ROS unobtainable: Yes unobtainable due to medical condition Exam Narrative: General: Well-nourished, chronically ill-appearing 86-year-old female, supine in bed, comfortable, NARD Neuro: awake, alert, does not respond to questions, exhibits confusion, no focal neuro deficits noted HEENMT: normocephalic, atraumatic, EOMI, sclerae anicteric Respiratory: clear to auscultation anteriorly, nonlabored breathing, would not allow me to auscultate posterior lung de los santos Cardio: would not allow cardiac auscultation Abdomen: nondistended, normoactive bowel sounds, soft, nontender to palpation Extremities: no edema or erythema Skin: no rashes or lesions, warm and dry Psych: poor judgment and insight. alert. Oriented person only. Objective Data Vital Signs Vital Signs: Vital Signs - 24 hr 10/25/21 14:15 10/25/21 18:30 10/25/21 20:00 Temperature 97.8 F 96.9 F L 96.8 F L Pulse Rate 74 74 80 Respiratory Rate 16 16 18 Blood Pressure 144/54 H 118/67 141/55 H Pulse Oximetry 97 98 100 Oxygen Delivery 10/26/21 00:00 10/25/21 20:00 10/26/21 02:57 Temperature 96.8 F L 97 F
[2021-10-26 13:24] VITALS: BP 138/50; PULSE 70; RESP 16; TEMP 36.1; O2SAT 97
[2021-10-26 17:46] VITALS: BP 124/87; PULSE 68; RESP 16; TEMP 36.1; O2SAT 98
[2021-10-26 20:26] VITALS: BP 157/67; PULSE 69; RESP 16; TEMP 37.1; O2SAT 98
[2021-10-27 01:08] VITALS: BP 128/63; PULSE 94; RESP 16; TEMP 36.6; O2SAT 91
[2021-10-27 06:00] VITALS: BP 123/55; PULSE 82; RESP 12; TEMP 36.4; O2SAT 90
[2021-10-27 08:00] VITALS: BP 129/65; PULSE 78; RESP 16; TEMP 36.9; O2SAT 94
[2021-10-27 08:55] LABS: Hemoglobin 8.1 g/dL (12.0-15.0); Mean Corpuscular HGB Conc 31.2 g/dl (32-36); Mean Corpuscular Hemoglobin 24.2 pg (26-34); Mean Corpuscular Volume 77.6 fl (80-100); Mean Platelet Volume 8.7 fl (7.4-10.4); Platelet Count Result 339 k/mm3 (150-375); Red Blood Count 3.35 M/mm3 (4.2-5.4); Red Cell Distribution Width 15.5 % (11.5-14.5); White Blood Count 10.7 K/mm3 (4.5-10.0)
[2021-10-27] MEDS: PANTOPRAZOLE SODIUM IV 40 MG VIAL IV PUSH ×2 (08:56→20:19)
[2021-10-27] MEDS: traZODone HCL 50 MG TABLET PO ×2 (08:56→17:40)
--- NOTE | 2021-10-27 09:18 | PM.PNNEP ---
Progress Note: A&P Assessment and Plan (1) Aiixg-sq-ntzrvjh kidney injury: Code(s): N17.9 - Acute kidney failure, unspecified; N18.9 - Chronic kidney disease, unspecified Status: Acute Assessment and Plan: The patient has chronic kidney disease. This is most likely due to hypertension and vascular disease. UA shows lots of leukocytes. Urine culture shows gram-negative bacilli. I and S pending. She has 2.68g of protein per g of creatinine. The patient has acute kidney injury as well. The ultrasound shows mild left hydronephrosis. Bladder ultrasound shows some debris consistent with a UTI. UA shows Pyuria. culture shows gram-negative bacilli. Will start Cipro Chest x-ray NAD CPK is normal Urine electrolytes are non pre renal Her creatinine is pending (2) Pulmonary edema: Code(s): J81.1 - Chronic pulmonary edema Status: Acute Assessment and Plan: The patient was hypoxic and chest x-ray showed fluid. The patient had an echocardiogram which showed normal LV function. This responded to diuretics. Repeat chest x-ray shows clearing of the infiltrates. (3) Esophageal ulcer with bleeding: Code(s): K22.11 - Ulcer of esophagus with bleeding Status: Acute Assessment and Plan: Patient had the EGD done showing this. She is on a PPI (4) Dementia: Code(s): F03.90 - Unspecified dementia without behavioral disturbance Status: Acute (5) Anemia: Code(s): D64.9 - Anemia, unspecified Status: Acute Assessment and Plan: Hemoglobin has been stable since she got here. Iron levels show a low TSAT. She is getting antibiotics so will hold off on iron therapy right now. (6) Hypertension: Code(s): I10 - Essential (primary) hypertension Status: Acute Assessment and Plan: Blood pressure is well controlled with a systolic of 128 Subjective Date/time seen: 10/27/21 09:18 Interval history: Stephanie looks about the same today. She says she feels okay. Exam Narrative: The patient allowed me to examin her. WDWN in NAD skin no rash head ncat lungs clear cor reg no rub abd BS+ nontender and soft ext no edema. Objective Data Vital Signs Vital Signs: Vital Signs - 24 hr 10/26/21 13:24 10/26/21 17:46 10/26/21 20:26 Temperature 36.1 C L 36.1 C L 37.1 C Pulse Rate 70 68 69 Respiratory Rate 16 16 16 Blood Pressure 138/50 L 124/87 157/67 H Pulse Oximetry 97 98 98 Oxygen Delivery 10/26/21 20:00 10/27/21 01:08 10/27/21 06:00 Temperature 36.6 C 36.4 C Pulse Rate 94 82 Respiratory Rate 16 12 Blood Pressure 128/63 123/55 L Pulse Oximetry 91 90 Oxygen Delivery Room Air 10/27/21 08:00 Temperature 36.9 C Pulse Rate 78 Respiratory Rate 16 Blood Pressure 129/65 Pulse Oximetry 94 Oxygen Delivery Intake/Output Intake/Output: Intake & Output 10/24/21 10/25/21 10/26/21 10/27/21 23:59 23:59 23:59 23:59 Intake Total 240 1100 1475 400 Balance 240 1100 1475 400 Meds/Results Medications: Active Medications Generic Name Dose Route Start Last Admin Trade Name Freq PRN Reason Stop Dose Admin Acetaminophen 650 mg 10/20/21 22:12 Acetaminophen 325 Mg Tablet PO Q6H PRN Mild Pain (1-3) or Fever Losartan Potassium 50 mg 10/21/21 09:00 10/24/21 10:23 Losartan Potassium 50 Mg Tablet PO Not Given DAILY [facility]NE Pantoprazole Sodium 40 mg 10/21/21 09:00 10/27/21 08:56 Pantoprazole Sodium Iv 40 Mg Vial IV PUSH 40 mg Q12HR CHEYENNE Administration Perflutren Lipid Microsphere 0 ml 10/22/21 08:06 Perflutren Lipid Microspheres 1.5 Ml Vial Diluted To 10 Ml Total Volume IV PUSH ONCE PRN adequate visualization Protocol Trazodone HCl 50 mg 10/20/21 22:20 10/27/21 08:56 Trazodone Hcl 50 Mg Tablet PO 50 mg BID CHEYENNE Administration Radiology Results: ITS Impressions Renal Ultrasound 10/25/21 10:44 Impression: 1: Mild
[2021-10-27 09:34] LABS: Anion Gap 13 mmol/L (8-16); Blood Urea Nitrogen 43 mg/dL (7-17); Carbon Dioxide 23 mmol/L (22-30); Chloride 99 mmol/L (98-107); Estimated CRCL calculation 12 ml/min; Estimated Glomerular Filt Rate 16; Glucose 137 mg/dL (65-110); Phosphorus 4.8 mg/dL (2.5-4.5); Potassium 4.7 mmol/L (3.4-5.0); Sodium 135 mmol/L (137-145)
[2021-10-27] MEDS: CIPROFLOXACIN 250 MG TABLET PO (11:19)
[2021-10-27 12:00] VITALS: BP 128/68; PULSE 74; RESP 16; TEMP 36.7; O2SAT 96
--- NOTE | 2021-10-27 12:59 | P.PNIM_ITS ---
Progress Note: A&P Assessment and Plan (1) Esophageal ulcer with bleeding: Code(s): K22.11 - Ulcer of esophagus with bleeding Status: Acute Assessment and Plan: Patient had episode of hematemesis at her nursing facility prior to presentation with dark red blood mixed with clots. * Underwent EGD on 10/21 which showed multiple benign ulcers visualized in the distal esophagus that were oozing blood as well as reflux and/or Verduzco's esophagitis. No biopsies collected due to ulceration * Pantoprazole 40 mg b.i.d. * Will need outpatient repeat EGD in 6 weeks to assess for improvement (2) UTI (urinary tract infection), bacterial: Code(s): N39.0 - Urinary tract infection, site not specified; A49.9 - Bacterial infection, unspecified Status: Acute Assessment and Plan: * 10/26 empiric cipro PO * 10/27 c/s with e coli resistant to fluroquinolones, plus has PCN allergy (throat swelling) so began Primaxin renal dose (3) Pulmonary edema: Code(s): J81.1 - Chronic pulmonary edema Status: Acute Assessment and Plan: Patient with episode of hypoxia overnight on 10/21. CXR evaluated which revealed pulmonary vascular congestion with diffuse bilateral interstitial pattern most likely secondary to pulmonary edema * Likely secondary to overhydration. * Symptomatic improvement following diuresis. Received Lasix 40 mg IV x3 doses * No documented history of CHF, patient unable to provide any additional details * Echocardiogram completed on 10/22 showed normal EF 65-70% with indeterminate diastolic function * Patient appears euvolemic at this time. * Monitor intake and output, daily weights * Maintaining adequate oxygen saturation on room air (4) Ukjpa-ht-fzbmaml kidney injury: Code(s): N17.9 - Acute kidney failure, unspecified; N18.9 - Chronic kidney disease, unspecified Status: Acute Assessment and Plan: Bump in creatinine today up to 2.8 on 10/25, improved to 2.5 on 10/26, 10/27 2.8 * Suspect secondary to IV diuresis. Lasix has been discontinued * Will avoid IV fluids at this time given pulmonary edema * Likely creatinine will trend back toward baseline with discontinuation of Lasix * Hold losartan * Continue to monitor BMP (5) Anemia: Code(s): D64.9 - Anemia, unspecified Status: Acute Assessment and Plan: Hemoglobin decreased from baseline on arrival * Likely secondary to episode of hematemesis * No ongoing bleeding * H&H remaining stable * Labs c/w Fe deficiency, implying rn long term care blood loss * IV iron sucrose ordered 10/26 * Continue to monitor (6) Hypertension: Code(s): I10 - Essential (primary) hypertension Status: Acute Assessment and Plan: Blood pressures reviewed and have been stable. * Hold home losartan given bump in creatinine * 10/26 control adequate (7) Dementia: Code(s): F03.90 - Unspecified dementia without behavioral disturbance Status: Acute Assessment and Plan: At baseline Subjective Date/time seen: 10/27/21 12:59 Ate well. NO c/o. Review of Systems Review of Systems: ROS unobtainable: Yes unobtainable due to mental status Exam Narrative: General: Well-nourished, chronically ill-appearing 86-year-old female, supine in bed, comfortable, NARD Neuro: awake, alert, does not respond to questions, exhibits confusion, no focal neuro deficits noted HEENMT: normocephalic, atraumatic, EOMI, sclerae anicteric Respiratory: clear to auscultatio
--- NOTE | 2021-10-27 12:59 | PM.IMPN ---
Progress Note: A&P Assessment and Plan (1) Esophageal ulcer with bleeding: Code(s): K22.11 - Ulcer of esophagus with bleeding Status: Acute Assessment and Plan: Patient had episode of hematemesis at her nursing facility prior to presentation with dark red blood mixed with clots. Underwent EGD on 10/21 which showed multiple benign ulcers visualized in the distal esophagus that were oozing blood as well as reflux and/or Verduzco's esophagitis. No biopsies collected due to ulceration Pantoprazole 40 mg b.i.d. Will need outpatient repeat EGD in 6 weeks to assess for improvement (2) UTI (urinary tract infection), bacterial: Code(s): N39.0 - Urinary tract infection, site not specified; A49.9 - Bacterial infection, unspecified Status: Acute Assessment and Plan: 10/26 empiric cipro PO 10/27 c/s with e coli resistant to fluroquinolones, plus has PCN allergy (throat swelling) so began Primaxin renal dose (3) Pulmonary edema: Code(s): J81.1 - Chronic pulmonary edema Status: Acute Assessment and Plan: Patient with episode of hypoxia overnight on 10/21. CXR evaluated which revealed pulmonary vascular congestion with diffuse bilateral interstitial pattern most likely secondary to pulmonary edema Likely secondary to overhydration. Symptomatic improvement following diuresis. Received Lasix 40 mg IV x3 doses No documented history of CHF, patient unable to provide any additional details Echocardiogram completed on 10/22 showed normal EF 65-70% with indeterminate diastolic function Patient appears euvolemic at this time. Monitor intake and output, daily weights Maintaining adequate oxygen saturation on room air (4) Bhltu-rv-mibaien kidney injury: Code(s): N17.9 - Acute kidney failure, unspecified; N18.9 - Chronic kidney disease, unspecified Status: Acute Assessment and Plan: Bump in creatinine today up to 2.8 on 10/25, improved to 2.5 on 10/26, 10/27 2.8 Suspect secondary to IV diuresis. Lasix has been discontinued Will avoid IV fluids at this time given pulmonary edema Likely creatinine will trend back toward baseline with discontinuation of Lasix Hold losartan Continue to monitor BMP (5) Anemia: Code(s): D64.9 - Anemia, unspecified Status: Acute Assessment and Plan: Hemoglobin decreased from baseline on arrival Likely secondary to episode of hematemesis No ongoing bleeding H&H remaining stable Labs c/w Fe deficiency, implying fpc blood loss IV iron sucrose ordered 10/26 Continue to monitor (6) Hypertension: Code(s): I10 - Essential (primary) hypertension Status: Acute Assessment and Plan: Blood pressures reviewed and have been stable. Hold home losartan given bump in creatinine 10/26 control adequate (7) Dementia: Code(s): F03.90 - Unspecified dementia without behavioral disturbance Status: Acute Assessment and Plan: At baseline Subjective Date/time seen: 10/27/21 12:59 Ate well. NO c/o. Review of Systems Review of Systems: ROS unobtainable: Yes unobtainable due to mental status Exam Narrative: General: Well-nourished, chronically ill-appearing 86-year-old female, supine in bed, comfortable, NARD Neuro: awake, alert, does not respond to questions, exhibits confusion, no focal neuro deficits noted HEENMT: normocephalic, atraumatic, EOMI, sclerae anicteric Respiratory: clear to auscultation anteriorly, nonlabored breathing, would not allow me to auscultate posterior lung de los santos Cardio: would not allow cardiac auscultation Abdomen: nondistended, normoactive bowel sounds, soft, nontender to palpation Extremities: no edema or erythema Skin: no rashes or lesions, warm and dry Psych: poor judgment and insight. alert. Oriented person only. Objective Data Vital Signs Vital Signs: Vital Signs - 24 hr 10/26/21 13:24 10/26/21 17:46 10/26/21 20:26 Tem
[2021-10-27 16:00] VITALS: BP 128/63; PULSE 76; RESP 16; TEMP 36.5; O2SAT 95
[2021-10-27 19:48] VITALS: BP 141/51; PULSE 82; RESP 14; TEMP 36.4; O2SAT 95
[2021-10-28] VITALS: BP 146/50; PULSE 79; RESP 16; TEMP 36.5; O2SAT 92
[2021-10-28 05:10] LABS: Hematocrit 24.2 % (37.0-47.0); Hemoglobin 7.5 g/dL (12.0-15.0); Mean Corpuscular Hemoglobin 24.4 pg (26-34); Mean Corpuscular Volume 78.8 fl (80-100); Mean Platelet Volume 8.7 fl (7.4-10.4); Platelet Count Result 302 k/mm3 (150-375); Red Blood Count 3.07 M/mm3 (4.2-5.4); Red Cell Distribution Width 15.7 % (11.5-14.5); White Blood Count 11.1 K/mm3 (4.5-10.0)
[2021-10-28 05:26] LABS: Albumin Level 3.7 g/dL (3.5-5.1); Anion Gap 13 mmol/L (8-16); Blood Urea Nitrogen 47 mg/dL (7-17); Calcium 8.5 mg/dL (8.4-10.2); Carbon Dioxide 21 mmol/L (22-30); Chloride 101 mmol/L (98-107); Estimated CRCL calculation 12 ml/min; Estimated Glomerular Filt Rate 15; Glucose 128 mg/dL (65-110); Phosphorus 4.2 mg/dL (2.5-4.5); Sodium 135 mmol/L (137-145)
[2021-10-28 06:55] VITALS: BP 113/49; PULSE 72; RESP 16; TEMP 36.4; O2SAT 93
[2021-10-28 08:28] LABS: Magnesium 2.1 mg/dL (1.6-2.3)
[2021-10-28] MEDS: PANTOPRAZOLE SODIUM IV 40 MG VIAL IV PUSH ×2 (08:42→20:12)
[2021-10-28] MEDS: traZODone HCL 50 MG TABLET PO ×2 (08:42→16:44)
--- NOTE | 2021-10-28 10:42 | PM.PNNEP ---
Progress Note: A&P Assessment and Plan (1) Kqamo-mr-mxquihs kidney injury: Code(s): N17.9 - Acute kidney failure, unspecified; N18.9 - Chronic kidney disease, unspecified Status: Acute Assessment and Plan: The patient has chronic kidney disease. This is most likely due to hypertension and vascular disease. UA shows lots of leukocytes. Urine culture shows gram-negative bacilli. I and S pending. She has 2.68g of protein per g of creatinine. The patient has acute kidney injury as well. The ultrasound shows mild left hydronephrosis. Bladder ultrasound shows some debris consistent with a UTI. UA shows Pyuria. culture shows gram-negative bacilli. Will start Cipro Chest x-ray NAD CPK is normal Urine electrolytes are non pre renal Her creatinine is still in the high 2s. Baseline is in the low 2s. I am not sure she is eating very well. I do not think an IV or a PEG tube is going to stay in for very long. I am not sure what we can do about this in the long run considering her mental status. (2) Pulmonary edema: Code(s): J81.1 - Chronic pulmonary edema Status: Acute Assessment and Plan: The patient was hypoxic and chest x-ray showed fluid. The patient had an echocardiogram which showed normal LV function. This responded to diuretics. Repeat chest x-ray shows clearing of the infiltrates. (3) Esophageal ulcer with bleeding: Code(s): K22.11 - Ulcer of esophagus with bleeding Status: Acute Assessment and Plan: Patient had the EGD done showing this. She is on a PPI (4) Dementia: Code(s): F03.90 - Unspecified dementia without behavioral disturbance Status: Acute (5) Anemia: Code(s): D64.9 - Anemia, unspecified Status: Acute Assessment and Plan: Hemoglobin has been stable since she got here. Iron levels show a low TSAT. She is getting antibiotics so will hold off on iron therapy right now. (6) Hypertension: Code(s): I10 - Essential (primary) hypertension Status: Acute Assessment and Plan: Blood pressure is well controlled with a systolic of 128 Subjective Date/time seen: 10/28/21 10:42 Interval history: Stephanie looks about the same today. The patient is less cooperative today. I could barely listen to her heart and lungs. Exam Narrative: WDWN in NAD skin no rash head ncat lungs clear cor reg no rub abd not examined. Objective Data Vital Signs Vital Signs: Vital Signs - 24 hr 10/27/21 12:00 10/27/21 16:00 10/27/21 19:47 Temperature 36.7 C 36.5 C Pulse Rate 74 76 Respiratory Rate 16 16 Blood Pressure 128/68 128/63 Pulse Oximetry 96 95 Oxygen Delivery Room Air 10/27/21 19:48 10/28/21 00:00 10/28/21 06:55 Temperature 36.4 C 36.5 C 36.4 C Pulse Rate 82 79 72 Respiratory Rate 14 16 16 Blood Pressure 141/51 H 146/50 H 113/49 L Pulse Oximetry 95 92 93 Oxygen Delivery 10/28/21 09:00 Temperature Pulse Rate Respiratory Rate Blood Pressure Pulse Oximetry Oxygen Delivery Room Air Intake/Output Intake/Output: Intake & Output 10/25/21 10/26/21 10/27/21 10/28/21 23:59 23:59 23:59 23:59 Intake Total 1100 1475 1620 640 Balance 1100 1475 1620 640 Meds/Results Medications: Active Medications Generic Name Dose Route Start Last Admin Trade Name Freq PRN Reason Stop Dose Admin Acetaminophen 650 mg 10/20/21 22:12 Acetaminophen 325 Mg Tablet PO Q6H PRN Mild Pain (1-3) or Fever Imipenem/Cilastatin Sodium 250 100 mls @ 300 mls/hr 10/27/21 14:00 10/28/21 02:02 mg/ Sodium Chloride IVPB Infused Q12H [place] Infusion Losartan Potassium 50 mg 10/21/21 09:00 10/24/21 10:23 Losartan Potassium 50 Mg Tablet PO Not Given DAILY [place] Pantoprazole Sodium 40 mg 10/21/21 09:00 10/28/21 08:42 Pantoprazole Sodium Iv 40 Mg Vial IV PUSH 40 mg Q12HR [place] Administration Perflutren Lipid Microsphere 0 ml
[2021-10-28 10:55] VITALS: BP 121/66; PULSE 80; RESP 16; TEMP 36.4; O2SAT 95
--- NOTE | 2021-10-28 11:15 | PM.IMPN ---
Progress Note: A&P Assessment and Plan (1) Esophageal ulcer with bleeding: Code(s): K22.11 - Ulcer of esophagus with bleeding Status: Acute Assessment and Plan: Patient had episode of hematemesis at her nursing facility prior to presentation with dark red blood mixed with clots. Underwent EGD on 10/21 which showed multiple benign ulcers visualized in the distal esophagus that were oozing blood as well as reflux and/or Verduzco's esophagitis. No biopsies collected due to ulceration Pantoprazole 40 mg b.i.d. Will need outpatient repeat EGD in 6 weeks to assess for improvement 10/28/2021 interval history: patient is 86-year-old female with dementia resident of nursing was sent to emergency department with hematoma emesis was seen by GI and had a EGD and multiple benign ulcers were visualized in the distal esophagus which were oozing blood as well as reflux esophagitis and Sam's esophagitis, Patient Hgb is trending down, will continue to monitor, patient with acute on chronic disease and her kidney function in worsening unable to place IV or NG tube as patient with dementia and pull IV and NG tube, patient does have UTI with E coli resistant to cipro, and allergic PNC, being treated with imipenem, as patient UTI improves may be patient may cooperate, will continue to monitor, will have PT/OT evaluate the patient. (2) UTI (urinary tract infection), bacterial: Code(s): N39.0 - Urinary tract infection, site not specified; A49.9 - Bacterial infection, unspecified Status: Acute Assessment and Plan: 10/26 empiric cipro PO 10/27 c/s with e coli resistant to fluroquinolones, plus has PCN allergy (throat swelling) so began Primaxin renal dose (3) Pulmonary edema: Code(s): J81.1 - Chronic pulmonary edema Status: Acute Assessment and Plan: Patient with episode of hypoxia overnight on 10/21. CXR evaluated which revealed pulmonary vascular congestion with diffuse bilateral interstitial pattern most likely secondary to pulmonary edema Likely secondary to overhydration. Symptomatic improvement following diuresis. Received Lasix 40 mg IV x3 doses No documented history of CHF, patient unable to provide any additional details Echocardiogram completed on 10/22 showed normal EF 65-70% with indeterminate diastolic function Patient appears euvolemic at this time. Monitor intake and output, daily weights Maintaining adequate oxygen saturation on room air (4) Rtrbe-iy-vpwwoqy kidney injury: Code(s): N17.9 - Acute kidney failure, unspecified; N18.9 - Chronic kidney disease, unspecified Status: Acute Assessment and Plan: Bump in creatinine today up to 2.8 on 10/25, improved to 2.5 on 10/26, 10/27 2.8 Suspect secondary to IV diuresis. Lasix has been discontinued Will avoid IV fluids at this time given pulmonary edema Likely creatinine will trend back toward baseline with discontinuation of Lasix Hold losartan Continue to monitor BMP (5) Anemia: Code(s): D64.9 - Anemia, unspecified Status: Acute Assessment and Plan: Hemoglobin decreased from baseline on arrival Likely secondary to episode of hematemesis No ongoing bleeding H&H remaining stable Labs c/w Fe deficiency, implying half-way blood loss IV iron sucrose ordered 10/26 Continue to monitor (6) Hypertension: Code(s): I10 - Essential (primary) hypertension Status: Acute Assessment and Plan: Blood pressures reviewed and have been stable. Hold home losartan given bump in creatinine 10/26 control adequate (7) Dementia: Code(s): F03.90 - Unspecified dementia without behavioral disturbance Status: Acute Assessment and Plan: At baseline Subjective Date/time seen: 10/28/21 11:15 10/28/2021 interval history: patient is 86-year-old female with dementia resident of nursing was sent to emergency department with hematoma emesis was seen by THERESA spicer
[2021-10-28 14:11] VITALS: BP 128/48; PULSE 78; RESP 16; TEMP 36.3; O2SAT 98
[2021-10-28] MEDS: SACCHAROMYCES BOULARDII 250 MG CAPSULE PO (17:03)
[2021-10-28 18:00] VITALS: BP 139/79; PULSE 74; RESP 16; TEMP 36.1; O2SAT 97
[2021-10-28 21:16] VITALS: BP 122/47; PULSE 71; RESP 18; TEMP 36; O2SAT 95
[2021-10-29] VITALS (7 sets, daily range): BP systolic 108–140; BP diastolic 40–48; PULSE 61–84; RESP 18–20; TEMP 35.9–36.6; O2SAT 95–100; BMI 22.8
[2021-10-29 05:57] LABS: Hematocrit 25.1 % (37.0-47.0); Hemoglobin 7.6 g/dL (12.0-15.0); Mean Corpuscular HGB Conc 30.3 g/dl (32-36); Mean Corpuscular Hemoglobin 24.7 pg (26-34); Mean Corpuscular Volume 81.5 fl (80-100); Mean Platelet Volume 8.8 fl (7.4-10.4); Platelet Count Result 300 k/mm3 (150-375); Red Blood Count 3.08 M/mm3 (4.2-5.4); Red Cell Distribution Width 15.6 % (11.5-14.5); White Blood Count 10.6 K/mm3 (4.5-10.0)
[2021-10-29 06:10] LABS: Albumin Level 3.7 g/dL (3.5-5.1); Anion Gap 11 mmol/L (8-16); Blood Urea Nitrogen 47 mg/dL (7-17); Calcium 8.8 mg/dL (8.4-10.2); Carbon Dioxide 22 mmol/L (22-30); Chloride 106 mmol/L (98-107); Estimated CRCL calculation 12 ml/min; Estimated Glomerular Filt Rate 16; Glucose 111 mg/dL (65-110); Phosphorus 4.7 mg/dL (2.5-4.5); Potassium 4.2 mmol/L (3.4-5.0); Sodium 139 mmol/L (137-145)
[2021-10-29] MEDS: SACCHAROMYCES BOULARDII 250 MG CAPSULE PO ×2 (08:46→16:54)
[2021-10-29] MEDS: PANTOPRAZOLE SODIUM IV 40 MG VIAL IV PUSH (08:46)
[2021-10-29] MEDS: traZODone HCL 50 MG TABLET PO ×2 (08:46→16:54)
[2021-10-29] MEDS: polyethylene glycoL 3350 17 GM POWD.PACK PO (11:00)
--- NOTE | 2021-10-29 13:30 | PCNSR ---
On 10/29/21, the student, Sharee Zavala, provided care and completed [facility] documentation on this patient. I have reviewed the student's documentation and agree with the findings. Roslyn Catalan MS RD LDN
--- NOTE | 2021-10-29 15:06 | PM.PNNEP ---
Progress Note: A&P Assessment and Plan (1) STANTON (acute kidney injury): Code(s): N17.9 - Acute kidney failure, unspecified Status: Acute Assessment and Plan: due to UTI and left hydronephrosis(?) evaluation to date: UA c/w UTI renal ultrasound with mild left hydronephrosis urine electrolytes are non-prerenal CPK is normal attempt IVFs if able (she keeps removing her IVs) continue antibiotics follow trend of repeat labs and UOP may have to accept a higher creatinine since we are unable to (due to lack of cooperation) do what needs to be done to get things better (2) Chronic kidney disease, stage IV (severe): Code(s): N18.4 - Chronic kidney disease, stage 4 (severe) Status: Chronic Assessment and Plan: baseline creatinine runs 2.0mg/dl earlier this year likely secondary to HTN, vascular disease, and age-related change (3) Pulmonary edema: Code(s): J81.1 - Chronic pulmonary edema Status: Acute Assessment and Plan: hypoxia noted with wet CXR responsive to diuretic therapy follow repeat CXRs (4) Esophageal ulcer with bleeding: Code(s): K22.11 - Ulcer of esophagus with bleeding Status: Acute Assessment and Plan: as noted by EGD on PPI (5) Hypertension: Code(s): I10 - Essential (primary) hypertension Status: Chronic Assessment and Plan: reasonably controlled follow trend of hemodynamics (6) Dementia: Code(s): F03.90 - Unspecified dementia without behavioral disturbance Status: Chronic Assessment and Plan: chronic issue Will continue to follow. Subjective Date/time seen: 10/29/21 15:06 Chart reviewed - assuming care from Dr. Norman; noted behavior issues that are making care for patient somewhat difficult; no issues/events overnight or earlier this AM. Exam Narrative: General: elderly female in NAD but not cooperative Heart: normal S1 and S2; no rub Lungs: clear to auscultation Abdomen: soft but unable to further assess Extremities: no cyanosis or clubbing; no edema Skin: warm and dry Objective Data Vital Signs Vital Signs: Vital Signs Temp Pulse Resp BP Pulse Ox O2 Del Method 10/29/21 11:30 36.4 C L 79 18 108/48 L 100 10/29/21 08:46 20 98 Room Air 10/29/21 08:00 36.1 C L 71 20 128/45 L 99 10/29/21 04:45 36.6 C 61 18 110/40 L 95 10/29/21 00:48 35.9 C L 73 18 131/40 L 96 10/28/21 21:16 36.0 C L 71 18 122/47 L 95 10/28/21 20:00 Room Air 10/28/21 18:00 36.1 C L 74 16 139/79 97 Intake/Output Intake/Output: Intake & Output 10/26/21 10/27/21 10/28/21 10/29/21 23:59 23:59 23:59 23:59 Intake Total 1475 1620 1380 1280 Balance 1475 1620 1380 1280 Meds/Results Medications: Active Medications Generic Name Dose Route Start Last Admin Trade Name Freq PRN Reason Stop Dose Admin Acetaminophen 650 mg 10/20/21 22:12 Acetaminophen 325 Mg Tablet PO Q6H PRN Mild Pain (1-3) or Fever Cefdinir 300 mg 10/29/21 21:00 Cefdinir 300 Mg Capsule PO DAILY@2100 [place] Docusate Sodium 100 mg 10/29/21 21:00 Docusate Sodium 100 Mg Capsule PO Q12HR [place] Losartan Potassium 50 mg 10/21/21 09:00 10/24/21 10:23 Losartan Potassium 50 Mg Tablet PO Not Given DAILY [place] Pantoprazole Sodium 40 mg 10/21/21 09:00 10/29/21 08:46 Pantoprazole Sodium Iv 40 Mg Vial IV PUSH 40 mg Q12HR [place] Administration Perflutren Lipid Microsphere 0 ml 10/22/21 08:06 Perflutren Lipid Microspheres 1.5 Ml Vial Diluted To 10 Ml Total Volume IV PUSH ONCE PRN adequate visualization Protocol Polyethylene Glycol 17 gm 10/29/21 10:29 10/29/21 11:00 Polyethylene Glycol 3350 17 Gm Powd.Pack PO 17 gm QAM PRN Administration Constipation Saccharomyces Boulardii 250 mg 10/28/21 17:00 10/29/21 08:46 Saccharomyces Boulardii 250 Mg Capsule P
--- NOTE | 2021-10-29 15:06 | P.PNNP_ITS ---
Progress Note: A&P Assessment and Plan (1) STANTON (acute kidney injury): Code(s): N17.9 - Acute kidney failure, unspecified Status: Acute Assessment and Plan: * due to UTI and left hydronephrosis(?) * evaluation to date: * UA c/w UTI * renal ultrasound with mild left hydronephrosis * urine electrolytes are non-prerenal * CPK is normal * attempt IVFs if able (she keeps removing her IVs) * continue antibiotics * follow trend of repeat labs and UOP * may have to accept a higher creatinine since we are unable to (due to lack of cooperation) do what needs to be done to get things better (2) Chronic kidney disease, stage IV (severe): Code(s): N18.4 - Chronic kidney disease, stage 4 (severe) Status: Chronic Assessment and Plan: * baseline creatinine runs 2.0mg/dl earlier this year * likely secondary to HTN, vascular disease, and age-related change (3) Pulmonary edema: Code(s): J81.1 - Chronic pulmonary edema Status: Acute Assessment and Plan: * hypoxia noted with wet CXR * responsive to diuretic therapy * follow repeat CXRs (4) Esophageal ulcer with bleeding: Code(s): K22.11 - Ulcer of esophagus with bleeding Status: Acute Assessment and Plan: * as noted by EGD * on PPI (5) Hypertension: Code(s): I10 - Essential (primary) hypertension Status: Chronic Assessment and Plan: * reasonably controlled * follow trend of hemodynamics (6) Dementia: Code(s): F03.90 - Unspecified dementia without behavioral disturbance Status: Chronic Assessment and Plan: * chronic issue Will continue to follow. Subjective Date/time seen: 10/29/21 15:06 Chart reviewed - assuming care from Dr. Norman; noted behavior issues that are making care for patient somewhat difficult; no issues/events overnight or earlier this AM. Exam Narrative: General: elderly female in NAD but not cooperative Heart: normal S1 and S2; no rub Lungs: clear to auscultation Abdomen: soft but unable to further assess Extremities: no cyanosis or clubbing; no edema Skin: warm and dry Objective Data Vital Signs Vital Signs: Vital Signs Temp Pulse Resp BP Pulse Ox O2 Del Method 10/29/21 11:30 36.4 C L 79 18 108/48 L 100 10/29/21 08:46 20 98 Room Air 10/29/21 08:00 36.1 C L 71 20 128/45 L 99 10/29/21 04:45 36.6 C 61 18 110/40 L 95 10/29/21 00:48 35.9 C L 73 18 131/40 L 96 10/28/21 21:16 36.0 C L 71 18 122/47 L 95 10/28/21 20:00 Room Air 10/28/21 18:00 36.1 C L 74 16 139/79 97 Intake/Output Intake/Output: Intake & Output 10/26/21 10/27/21 10/28/21 10/29/21 23:59 23:59 23:59 23:59 Intake Total 1475 1620 1380 1280 Balance 1475 1620 1380 1280 Meds/Results Medications: Active Medications Generic Name Dose Route Start Last Admin Trade Name Freq PRN Reason Stop Dose Admin Acetaminophen 650 mg 10/20/21 22:12 Acetaminophen 325 Mg Tablet PO Q6H PRN Mild Pain (1-3) or Fever Cefdinir 300 mg 10/29/21 21:00 Cefdinir 300 Mg Capsule PO DAILY@2100 S
--- NOTE | 2021-10-29 16:50 | PM.IMPN ---
Progress Note: A&P Assessment and Plan (1) Esophageal ulcer with bleeding: Code(s): K22.11 - Ulcer of esophagus with bleeding Status: Acute Assessment and Plan: Patient had episode of hematemesis at her nursing facility prior to presentation with dark red blood mixed with clots. Underwent EGD on 10/21 which showed multiple benign ulcers visualized in the distal esophagus that were oozing blood as well as reflux and/or Verduzco's esophagitis. No biopsies collected due to ulceration Pantoprazole 40 mg b.i.d. Will need outpatient repeat EGD in 6 weeks to assess for improvement 10/28/2021 interval history: patient is 86-year-old female with dementia resident of nursing was sent to emergency department with hematoma emesis was seen by GI and had a EGD and multiple benign ulcers were visualized in the distal esophagus which were oozing blood as well as reflux esophagitis and Sam's esophagitis, Patient Hgb is trending down, will continue to monitor, patient with acute on chronic disease and her kidney function in worsening unable to place IV or NG tube as patient with dementia and pull IV and NG tube, patient does have UTI with E coli resistant to cipro, and allergic PNC, being treated with imipenem, as patient UTI improves may be patient may cooperate, will continue to monitor, will have PT/OT evaluate the patient. 10/29/2021 interval history: patient is 86-year-old female with dementia resident of nursing was sent to emergency department with hematoma emesis was seen by GI and had a EGD and multiple benign ulcers were visualized in the distal esophagus which were oozing blood as well as reflux esophagitis and Sam's esophagitis, Patient Hgb was trending down but now it is stable, will continue to monitor, patient with acute on chronic disease and her kidney function in worsening unable to place IV or NG tube as patient with dementia and pull IV and NG tube, patient is not cooperative with oral intake, will encourage, patient does have UTI with E coli resistant to cipro, and allergic PNC, being treated with imipenem, discuss with ID pharmacy patient has tolerated ceftriaxone in the past, will start cefdinir, as patient UTI improves may be patient may cooperate, no BM for several days, colace and miralax will continue to monitor, will have PT/OT evaluate the patient. (2) UTI (urinary tract infection), bacterial: Code(s): N39.0 - Urinary tract infection, site not specified; A49.9 - Bacterial infection, unspecified Status: Acute Assessment and Plan: 10/26 empiric cipro PO 10/27 c/s with e coli resistant to fluroquinolones, plus has PCN allergy (throat swelling) so began Primaxin renal dose (3) Pulmonary edema: Code(s): J81.1 - Chronic pulmonary edema Status: Acute Assessment and Plan: Patient with episode of hypoxia overnight on 10/21. CXR evaluated which revealed pulmonary vascular congestion with diffuse bilateral interstitial pattern most likely secondary to pulmonary edema Likely secondary to overhydration. Symptomatic improvement following diuresis. Received Lasix 40 mg IV x3 doses No documented history of CHF, patient unable to provide any additional details Echocardiogram completed on 10/22 showed normal EF 65-70% with indeterminate diastolic function Patient appears euvolemic at this time. Monitor intake and output, daily weights Maintaining adequate oxygen saturation on room air (4) Xoect-de-ptzbpna kidney injury: Code(s): N17.9 - Acute kidney failure, unspecified; N18.9 - Chronic kidney disease, unspecified Status: Acute Assessment and Plan: Bump in creatinine today up to 2.8 on 10/25, improved to 2.5 on 10/26, 10/27 2.8 Suspect secondary to IV diuresis. Lasix has been discontinued Will avoid IV fluids at this time given pulmonary edema Likely creatinine will trend back toward baseline with discontinuation of Lasix Hold losartan Continue to monitor BMP
[2021-10-29] MEDS: DOCUSATE SODIUM 100 MG CAPSULE PO (21:10)
[2021-10-29] MEDS: CEFDINIR 300 MG CAPSULE PO (21:11)
[2021-10-30] VITALS (7 sets, daily range): BP systolic 100–150; BP diastolic 48–65; PULSE 68–80; RESP 16–18; TEMP 36.1–36.6; O2SAT 93–99
[2021-10-30 06:10] LABS: Hematocrit 25.1 % (37.0-47.0); Hemoglobin 7.7 g/dL (12.0-15.0); Mean Corpuscular HGB Conc 30.7 g/dl (32-36); Mean Corpuscular Hemoglobin 24.6 pg (26-34); Mean Corpuscular Volume 80.2 fl (80-100); Platelet Count Result 384 k/mm3 (150-375); Red Blood Count 3.13 M/mm3 (4.2-5.4); Red Cell Distribution Width 15.7 % (11.5-14.5); White Blood Count 10.7 K/mm3 (4.5-10.0)
[2021-10-30 06:31] LABS: Albumin Level 3.6 g/dL (3.5-5.1); Anion Gap 12 mmol/L (8-16); Blood Urea Nitrogen 45 mg/dL (7-17); Calcium 9.1 mg/dL (8.4-10.2); Carbon Dioxide 21 mmol/L (22-30); Chloride 104 mmol/L (98-107); Estimated CRCL calculation 14 ml/min; Estimated Glomerular Filt Rate 19; Glucose 122 mg/dL (65-110); Phosphorus 4.4 mg/dL (2.5-4.5); Potassium 4.2 mmol/L (3.4-5.0); Sodium 137 mmol/L (137-145)
[2021-10-30] MEDS: traZODone HCL 50 MG TABLET PO ×2 (09:13→17:07)
[2021-10-30] MEDS: SACCHAROMYCES BOULARDII 250 MG CAPSULE PO ×2 (09:13→17:07)
[2021-10-30] MEDS: PANTOPRAZOLE 40 MG TABLET PO ×2 (09:15→20:51)
[2021-10-30] MEDS: DOCUSATE SODIUM 100 MG CAPSULE PO ×2 (09:20→20:51)
--- NOTE | 2021-10-30 11:05 | PC.NURSE ---
spoke with Dr. Conti about patient's KUB results from this morning. He states I can order dulcolax suppository to help patient have BM
--- NOTE | 2021-10-30 11:22 | P.PNNP_ITS ---
Progress Note: A&P Assessment and Plan (1) STANTON (acute kidney injury): Code(s): N17.9 - Acute kidney failure, unspecified Status: Acute Assessment and Plan: * due to UTI and left hydronephrosis(?) * evaluation to date: * UA c/w UTI * renal ultrasound with mild left hydronephrosis * urine electrolytes are non-prerenal * CPK is normal * attempt IVFs if able (she keeps removing her IVs) * continue antibiotics * follow trend of repeat labs and UOP * may have to accept a higher creatinine since we are unable to (due to lack of cooperation) do what needs to be done to get things better (2) Chronic kidney disease, stage IV (severe): Code(s): N18.4 - Chronic kidney disease, stage 4 (severe) Status: Chronic Assessment and Plan: * baseline creatinine runs 2.0mg/dl earlier this year * likely secondary to HTN, vascular disease, and age-related change (3) Pulmonary edema: Code(s): J81.1 - Chronic pulmonary edema Status: Acute Assessment and Plan: * hypoxia noted with wet CXR * responsive to diuretic therapy * follow repeat CXRs (4) Esophageal ulcer with bleeding: Code(s): K22.11 - Ulcer of esophagus with bleeding Status: Acute Assessment and Plan: * as noted by EGD * on PPI (5) Hypertension: Code(s): I10 - Essential (primary) hypertension Status: Chronic Assessment and Plan: * reasonably controlled * follow trend of hemodynamics (6) Dementia: Code(s): F03.90 - Unspecified dementia without behavioral disturbance Status: Chronic Assessment and Plan: * chronic issue Will continue to follow. Subjective Date/time seen: 10/30/21 11:22 No real change noted although renal function/creatinine seems a bit better today; no other issues/events to report at this time. Exam Narrative: General: elderly female in NAD but not cooperative Heart: normal S1 and S2; no rub Lungs: clear to auscultation Abdomen: soft but unable to further assess Extremities: no cyanosis or clubbing; no edema Skin: warm and intact Objective Data Vital Signs Vital Signs: Vital Signs Temp Pulse Resp BP Pulse Ox O2 Del Method 10/30/21 09:42 36.6 C 78 16 146/48 H 93 10/30/21 06:25 36.4 C L 74 18 118/61 97 10/30/21 01:48 36.4 C L 68 18 115/52 L 96 10/29/21 20:00 Room Air 10/29/21 20:33 36.3 C L 84 18 120/45 L 97 10/29/21 16:00 36.6 C 74 18 140/42 L 98 10/29/21 11:30 36.4 C L 79 18 108/48 L 100 Intake/Output Intake/Output: Intake & Output 10/27/21 10/28/21 10/29/21 10/30/21 23:59 23:59 23:59 23:59 Intake Total 1620 1380 2620 480 Balance 1620 1380 2620 480 Meds/Results Medications: Active Medications Generic Name Dose Route Start Last Admin Trade Name Freq PRN Reason Stop Dose Admin Acetaminophen 650 mg 10/20/21 22:12 Acetaminophen 325 Mg Tablet PO Q6H PRN Mild Pain (1-3) or Fever Cefdinir 300 mg 10/29/21 21:00 10/29/21 21:11 Cefdinir 300 Mg Capsule PO 300 mg DAILY@2100 [place] Administration Docusate Sodium 100 mg 10/29/21 21:00 0
--- NOTE | 2021-10-30 11:22 | PM.PNNEP ---
Progress Note: A&P Assessment and Plan (1) STANTON (acute kidney injury): Code(s): N17.9 - Acute kidney failure, unspecified Status: Acute Assessment and Plan: due to UTI and left hydronephrosis(?) evaluation to date: UA c/w UTI renal ultrasound with mild left hydronephrosis urine electrolytes are non-prerenal CPK is normal attempt IVFs if able (she keeps removing her IVs) continue antibiotics follow trend of repeat labs and UOP may have to accept a higher creatinine since we are unable to (due to lack of cooperation) do what needs to be done to get things better (2) Chronic kidney disease, stage IV (severe): Code(s): N18.4 - Chronic kidney disease, stage 4 (severe) Status: Chronic Assessment and Plan: baseline creatinine runs 2.0mg/dl earlier this year likely secondary to HTN, vascular disease, and age-related change (3) Pulmonary edema: Code(s): J81.1 - Chronic pulmonary edema Status: Acute Assessment and Plan: hypoxia noted with wet CXR responsive to diuretic therapy follow repeat CXRs (4) Esophageal ulcer with bleeding: Code(s): K22.11 - Ulcer of esophagus with bleeding Status: Acute Assessment and Plan: as noted by EGD on PPI (5) Hypertension: Code(s): I10 - Essential (primary) hypertension Status: Chronic Assessment and Plan: reasonably controlled follow trend of hemodynamics (6) Dementia: Code(s): F03.90 - Unspecified dementia without behavioral disturbance Status: Chronic Assessment and Plan: chronic issue Will continue to follow. Subjective Date/time seen: 10/30/21 11:22 No real change noted although renal function/creatinine seems a bit better today; no other issues/events to report at this time. Exam Narrative: General: elderly female in NAD but not cooperative Heart: normal S1 and S2; no rub Lungs: clear to auscultation Abdomen: soft but unable to further assess Extremities: no cyanosis or clubbing; no edema Skin: warm and intact Objective Data Vital Signs Vital Signs: Vital Signs Temp Pulse Resp BP Pulse Ox O2 Del Method 10/30/21 09:42 36.6 C 78 16 146/48 H 93 10/30/21 06:25 36.4 C L 74 18 118/61 97 10/30/21 01:48 36.4 C L 68 18 115/52 L 96 10/29/21 20:00 Room Air 10/29/21 20:33 36.3 C L 84 18 120/45 L 97 10/29/21 16:00 36.6 C 74 18 140/42 L 98 10/29/21 11:30 36.4 C L 79 18 108/48 L 100 Intake/Output Intake/Output: Intake & Output 10/27/21 10/28/21 10/29/21 10/30/21 23:59 23:59 23:59 23:59 Intake Total 1620 1380 2620 480 Balance 1620 1380 2620 480 Meds/Results Medications: Active Medications Generic Name Dose Route Start Last Admin Trade Name Freq PRN Reason Stop Dose Admin Acetaminophen 650 mg 10/20/21 22:12 Acetaminophen 325 Mg Tablet PO Q6H PRN Mild Pain (1-3) or Fever Cefdinir 300 mg 10/29/21 21:00 10/29/21 21:11 Cefdinir 300 Mg Capsule PO 300 mg DAILY@2100 [place] Administration Docusate Sodium 100 mg 10/29/21 21:00 10/30/21 09:20 Docusate Sodium 100 Mg Capsule PO 100 mg Q12HR [place] Administration Losartan Potassium 50 mg 10/21/21 09:00 10/24/21 10:23 Losartan Potassium 50 Mg Tablet PO Not Given DAILY [place] Pantoprazole Sodium 40 mg 10/29/21 21:40 10/30/21 02:39 Pantoprazole 40 Mg Tablet PO Not Given Q12HR [place] Perflutren Lipid Microsphere 0 ml 10/22/21 08:06 Perflutren Lipid Microspheres 1.5 Ml Vial Diluted To 10 Ml Total Volume IV PUSH ONCE PRN adequate visualization Protocol Polyethylene Glycol 17 gm 10/29/21 10:29 10/29/21 11:00 Polyethylene Glycol 3350 17 Gm Powd.Pack PO 17 gm QAM PRN Administration Constipation Saccharomyces Boulardii 250 mg 10/28/21 17:00 10/30/21 09:13 Saccharomyces Boulardii 250 Mg Capsule PO 250 mg BID [place] Adminis
[2021-10-30] MEDS: BISACODYL 10 MG SUPPOSITORY RECTAL (11:31)
--- NOTE | 2021-10-30 15:29 | PM.IMPN ---
Progress Note: A&P Assessment and Plan (1) Esophageal ulcer with bleeding: Code(s): K22.11 - Ulcer of esophagus with bleeding Status: Acute Assessment and Plan: Patient had episode of hematemesis at her nursing facility prior to presentation with dark red blood mixed with clots. Underwent EGD on 10/21 which showed multiple benign ulcers visualized in the distal esophagus that were oozing blood as well as reflux and/or Verduzco's esophagitis. No biopsies collected due to ulceration Pantoprazole 40 mg b.i.d. Will need outpatient repeat EGD in 6 weeks to assess for improvement 10/28/2021 interval history: patient is 86-year-old female with dementia resident of nursing was sent to emergency department with hematoma emesis was seen by GI and had a EGD and multiple benign ulcers were visualized in the distal esophagus which were oozing blood as well as reflux esophagitis and Sam's esophagitis, Patient Hgb is trending down, will continue to monitor, patient with acute on chronic disease and her kidney function in worsening unable to place IV or NG tube as patient with dementia and pull IV and NG tube, patient does have UTI with E coli resistant to cipro, and allergic PNC, being treated with imipenem, as patient UTI improves may be patient may cooperate, will continue to monitor, will have PT/OT evaluate the patient. 10/29/2021 interval history: patient is 86-year-old female with dementia resident of nursing was sent to emergency department with hematoma emesis was seen by GI and had a EGD and multiple benign ulcers were visualized in the distal esophagus which were oozing blood as well as reflux esophagitis and Sam's esophagitis, Patient Hgb was trending down but now it is stable, will continue to monitor, patient with acute on chronic disease and her kidney function in worsening unable to place IV or NG tube as patient with dementia and pull IV and NG tube, patient is not cooperative with oral intake, will encourage, patient does have UTI with E coli resistant to cipro, and allergic PNC, being treated with imipenem, discuss with ID pharmacy patient has tolerated ceftriaxone in the past, will start cefdinir, as patient UTI improves may be patient may cooperate, no BM for several days, colace and miralax will continue to monitor, will have PT/OT evaluate the patient. 10/30/2021 interval history: patient is 86-year-old female with dementia resident of detention was sent to emergency department with hematoma emesis was seen by GI and had a EGD and multiple benign ulcers were visualized in the distal esophagus which were oozing blood as well as reflux esophagitis and Sam's esophagitis, Patient Hgb was trending down but now it is stable, will continue to monitor, patient with acute on chronic kidney disease and her kidney function is worsening unable to place IV or NG tube as patient with dementia and will pull IV and NG tube, patient is not cooperative with oral intake, will encourage, patient does have UTI with E coli resistant to cipro, and allergic PNC, being treated with imipenem, discuss with ID pharmacy patient has tolerated ceftriaxone in the past, will start cefdinir, as patient UTI improves may be patient may cooperate, no BM for several days, colace and miralax, patient had KUB today does show constipation, will give Dulcolax suppository will continue to monitor, will have PT/OT evaluate the patient. (2) UTI (urinary tract infection), bacterial: Code(s): N39.0 - Urinary tract infection, site not specified; A49.9 - Bacterial infection, unspecified Status: Acute Assessment and Plan: 10/26 empiric cipro PO 10/27 c/s with e coli resistant to fluroquinolones, plus has PCN allergy (throat swelling) so began Primaxin renal dose (3) Pulmonary edema: Code(s): J81.1 - Chronic pulmonary edema Status: Acute Assessment and Plan: Patient with episode of hypoxia overnight on 10/21. CXR evaluated which r
--- NOTE | 2021-10-30 18:55 | PC.NURSE ---
Social Media Executive reviewed Erin Asher RNLP charting and agreed.
[2021-10-30] MEDS: CEFDINIR 300 MG CAPSULE PO (20:51)
[2021-10-31 04:00] VITALS: BP 128/46; PULSE 71; RESP 16; TEMP 36.4; O2SAT 95
[2021-10-31] MEDS: SACCHAROMYCES BOULARDII 250 MG CAPSULE PO (08:14)
[2021-10-31] MEDS: PANTOPRAZOLE 40 MG TABLET PO (08:14)
[2021-10-31] MEDS: traZODone HCL 50 MG TABLET PO (08:14)
[2021-10-31] MEDS: DOCUSATE SODIUM 100 MG CAPSULE PO (08:14)
--- NOTE | 2021-10-31 09:28 | PM.DS ---
DS: Admitting Diagnosis Discharge Date 10/31/2021 Admitting Diagnosis hematemesis DS: Discharge Diagnosis Discharge Diagnosis (1) Esophageal ulcer with bleeding: Code(s): K22.11 - Ulcer of esophagus with bleeding Status: Acute Assessment and Plan: Patient had episode of hematemesis at her nursing facility prior to presentation with dark red blood mixed with clots. Underwent EGD on 10/21 which showed multiple benign ulcers visualized in the distal esophagus that were oozing blood as well as reflux and/or Verduzco's esophagitis. No biopsies collected due to ulceration Pantoprazole 40 mg b.i.d. Will need outpatient repeat EGD in 6 weeks to assess for improvement 10/28/2021 interval history: patient is 86-year-old female with dementia resident of nursing was sent to emergency department with hematoma emesis was seen by GI and had a EGD and multiple benign ulcers were visualized in the distal esophagus which were oozing blood as well as reflux esophagitis and Sam's esophagitis, Patient Hgb is trending down, will continue to monitor, patient with acute on chronic disease and her kidney function in worsening unable to place IV or NG tube as patient with dementia and pull IV and NG tube, patient does have UTI with E coli resistant to cipro, and allergic PNC, being treated with imipenem, as patient UTI improves may be patient may cooperate, will continue to monitor, will have PT/OT evaluate the patient. 10/29/2021 interval history: patient is 86-year-old female with dementia resident of nursing was sent to emergency department with hematoma emesis was seen by GI and had a EGD and multiple benign ulcers were visualized in the distal esophagus which were oozing blood as well as reflux esophagitis and Sam's esophagitis, Patient Hgb was trending down but now it is stable, will continue to monitor, patient with acute on chronic disease and her kidney function in worsening unable to place IV or NG tube as patient with dementia and pull IV and NG tube, patient is not cooperative with oral intake, will encourage, patient does have UTI with E coli resistant to cipro, and allergic PNC, being treated with imipenem, discuss with ID pharmacy patient has tolerated ceftriaxone in the past, will start cefdinir, as patient UTI improves may be patient may cooperate, no BM for several days, colace and miralax will continue to monitor, will have PT/OT evaluate the patient. 10/30/2021 interval history: patient is 86-year-old female with dementia resident of [facility] was sent to emergency department with hematoma emesis was seen by GI and had a EGD and multiple benign ulcers were visualized in the distal esophagus which were oozing blood as well as reflux esophagitis and Sam's esophagitis, Patient Hgb was trending down but now it is stable, will continue to monitor, patient with acute on chronic kidney disease and her kidney function is worsening unable to place IV or NG tube as patient with dementia and will pull IV and NG tube, patient is not cooperative with oral intake, will encourage, patient does have UTI with E coli resistant to cipro, and allergic PNC, being treated with imipenem, discuss with ID pharmacy patient has tolerated ceftriaxone in the past, will start cefdinir, as patient UTI improves may be patient may cooperate, no BM for several days, colace and miralax, patient had KUB today does show constipation, will give Dulcolax suppository will continue to monitor, will have PT/OT evaluate the patient. (2) UTI (urinary tract infection), bacterial: Code(s): N39.0 - Urinary tract infection, site not specified; A49.9 - Bacterial infection, unspecified Status: Acute Assessment and Plan: 10/26 empiric cipro PO 10/27 c/s with e coli resistant to fluroquinolones, plus has PCN allergy (throat swelling) so began Primaxin renal dose (3) Pulmonary edema: Code(s): J81.1 - Chronic pulmonary edema Status: Acute A
[2021-10-31 10:00] VITALS: BP 150/63; PULSE 81; RESP 16; TEMP 36.3; O2SAT 99
[2021-10-31 11:22] LABS: EDCOVIDSCREEN Negative (Negative)
== END 2021-10-31 12:25 | DRG 381 ==
LOC: ANHED 16:06 → ANH2MED 18:57
PROVIDERS: Emergency Medicine; Internal Medicine; Internal Medicine Gastroenterology; Internal Medicine Nephrology; Physician Assistant; Admitting Provider Hospitalist; Emergency Provider Preventive Medicine Aerospace Medicine; PCP Internal Medicine; Visit Provider Family Medicine
PROC: 0DJ08ZZ Inspection of Upper Intestinal Tract, Via Natural or Artificial Opening Endoscopic (ICD-10-PCS; CPT 43235; principal; 2021-10-21 08:00)
DX: K22.11 Ulcer of esophagus with bleeding (principal); I13.0 Hypertensive heart and chronic kidney disease with heart failure and stage 1 through stage 4 chronic kidney disease, or unspecified chronic kidney disease; J81.1 Chronic pulmonary edema; N18.4 Chronic kidney disease, stage 4 (severe); N17.9 Acute kidney failure, unspecified; N39.0 Urinary tract infection, site not specified; Z16.23 Resistance to quinolones and fluoroquinolones; I50.9 Heart failure, unspecified; Z20.822 Contact with and (suspected) exposure to COVID-19; B96.20 Unspecified Escherichia coli [E. coli] as the cause of diseases classified elsewhere; D63.1 Anemia in chronic kidney disease; E78.5 Hyperlipidemia, unspecified; F03.90 Unspecified dementia, unspecified severity, without behavioral disturbance, psychotic disturbance, mood disturbance, and anxiety; F41.8 Other specified anxiety disorders; H26.9 Unspecified cataract; H91.90 Unspecified hearing loss, unspecified ear; K21.00 Gastro-esophageal reflux disease with esophagitis, without bleeding; K59.00 Constipation, unspecified; M19.049 Primary osteoarthritis, unspecified hand; R93.89 Abnormal findings on diagnostic imaging of other specified body structures; Z88.0 Allergy status to penicillin; Z90.49 Acquired absence of other specified parts of digestive tract; Z66 Do not resuscitate
CPT/HCPCS: 36415; 71045; 71046; 74018; 76775; 80048; 80053; 80069; 81001; 82550; 82570; 82728; 83540; 83550; 83735; 84156; 84300; 85014; 85018; 85025; 85027; 85610; 85730; 86850; 86900; 86901; 87077; 87081; 87086; 87186; 87426; 93306; 96361; 96374; 96375; 96376; 99285; A9270; C9113; C9803; G0378; J0743; J1756; J1940; J2704; J2765; J7120

== ENCOUNTER 2022-05-12 00:29 | Observation (INO) | payer MEDICARE, MEDICAID, SELFPAY ==
[2022-05-12] VITALS (12 sets, daily range): BP systolic 73–109; BP diastolic 32–45; PULSE 31–38; RESP 32–45; TEMP 29.9; O2SAT 42–92; BMI 38.3
--- NOTE | ~2022-05-12 | XR_ITS ---
EXAMINATION: XR chest 1V portable DATE: 05/12/2022 02:49 INDICATION: Cough. TECHNIQUE: A single frontal view of the chest was obtained. COMPARISON: Chest 2 views 10/26/2021 FINDINGS: There are airspace opacities in the mid and lower lung zones. There are small pleural effus ions. No pneumothorax. Cardiomegaly is noted. IMPRESSION: 1. Airspace opacities in the mid and lower lung zones, consistent with pneumonia versus pulmonary lea ma. 2. Small pleural effusions. 3. Cardiomegaly. Reviewed, dictated and finalized at location A. PT READER IMPRESSION: 1. Airspace opacities in the mid and lower lung zones, consistent with pneumoni a versus pulmonary edema. 2. Small pleural effusions. 3. Cardiomegaly.
[2022-05-12] MEDS: MORPHINE SULFATE (*CRX) 2 MG/ML INJ IV PUSH (00:54)
[2022-05-12] MEDS: LORazepam INJ (*CRX) 2 MG/ML VIAL 1 MG IV PUSH (00:55)
--- NOTE | 2022-05-12 01:15 | PC.NURSE ---
Family at bedside, hospice resources given upon request.
--- NOTE | 2022-05-12 01:18 | ED.GENADULT ---
HPI - General Adult General Chief complaint: Shortness of Breath/Dyspnea Stated complaint: RESPIRATORY DISTRESS, AMS History of Present Illness HPI narrative: Patient is a 86-year-old female who presents emergency department with chief complaint of shortness of breath. Patient is a resident of a local nursing facility and is DNR comfort measures patient this evening started having increasing shortness of breath EMS was called and upon EMS arrival patient was not perfusing well and was placed on 100% nonrebreather and was still saturating in the 70s. Patient was also bradycardic with a heart rate in the 30s. Patient was not really responsive at that time family was notified and the family has arrived to the emergency department with the patient as well. 2 family members have arrived with the patient and confirm that the patient is DNR and requesting comfort measures. The patient's daughter who is the primary power of lodge sales associate was spoken with on the phone as she is traveling back from the [facility] and will not arrive in [place] until 1 PM tomorrow in discussion with the family they do not want any interventions done to prolong life and wished comfort measures only. They do not want intubation they do not want BiPAP request for pain control and anxiolysis they do not want central line vasopressors Related Data Home Medications Medication Instructions Recorded Confirmed acetaminophen 500 mg tablet 500 mg PO Q6H PRN Pain 04/14/19 10/20/21 acetaminophen 500 mg tablet 500 mg PO BID 04/14/19 10/20/21 (Tylenol Extra Strength) guaifenesin 600 mg tablet, 600 mg PO Q12H PRN Allergy Symptoms 04/14/19 10/20/21 extended release 12 hr (Mucinex) losartan 50 mg tablet 50 mg PO DAILY 04/14/19 10/20/21 atorvastatin 10 mg tablet 10 mg PO DAILY 10/20/21 10/20/21 bismuth subsalicylate 262 mg/15 mL 262 mg PO DAILY PRN Diarrhea 10/20/21 10/20/21 oral suspension cholecalciferol (vitamin D3) 25 25 mcg PO DAILY 10/20/21 10/20/21 mcg (1,000 unit) tablet ondansetron HCl 4 mg tablet 4 mg PO Q4H PRN Nausea 10/20/21 10/20/21 phenylephrine 0.25 %-mineral oil 1 applic topical DAILY PRN 08/13/22 08/13/22 14 %-petrolatm 74.9 % rectal Hemorrhoids ointment (Preparation H) trazodone 50 mg tablet 50 mg PO BID 10/20/21 10/20/21 Allergies Allergy/AdvReac Type Severity Reaction Status Date / Time Penicillins Allergy Unknown Throat Verified 05/12/22 00:40 swelling Review of Systems Review of Systems: A 10 system review of systems was completed on the patient and is negative except for what is stated in the HPI. Nursing and ancillary documentation was reviewed. COUNT INCLUDES THE [facility] Past Medical History Medical History Arthritis Chronic anemia Chronic kidney disease Dementia Depression with anxiety Detached retina Gastroesophageal reflux disease Hearing loss Hyperlipidemia Hypertension Post-menopausal bleeding Surgical History Surgical History History of bunionectomy of both great toes History of carpal tunnel release History of cholecystectomy Status post trigger finger release Family History Family History Mother Family history of cardiovascular disease Family history of aortic aneurysm Father Family history of cardiovascular disease, Onset Age: 79 Family history of cardiomyopathy, Onset Age: 63 Sibling Family history of malignant neoplasm of brain, Onset Age: 51 Social History Social History Social History: Healthcare power of lodge sales associate: Kalyn Collingsworth, daughter. Code status: Do not resuscitate. Smoking status: Never smoker Alcohol intake: unknown Substance use: unknown Substance use type: does not use Living arrangements: fpc Spiritual care co
[2022-05-12 02:24] LABS: Basophils Absolute Auto 0.1 K/mm3 (0.0-0.1); Basophils Percent Auto 0.5 % (0.2-1.2); Eosinophils Percent Auto 0.1 % (0-4.4); Hematocrit 31.7 % (37.0-47.0); Hemoglobin 9.6 g/dL (12.0-15.0); Immature Granulocyte Absolute 0.03 K/mm3 (0.00-0.031); Immature Granulocyte Percent A 0.3 % (0-0.5); Immature Platelet Fraction Pct 9.3 % (0.9-11.2); Lymphocytes Absolute Auto 0.85 K/mm3 (0.9-3.2); Lymphocytes Percent Auto 9.2 % (18.3-44.2); Mean Corpuscular HGB Conc 30.3 g/dl (32-36); Mean Corpuscular Volume 89.3 fl (80-100); Mean Platelet Volume 11.2 fl (7.4-10.4); Monocytes Absolute Auto 0.1 K/mm3 (0.1-0.6); Monocytes Percent Auto 1.5 % (2.6-8.5); Neutrophils Absolute Auto 8.1 K/mm3 (1.3-6.7); Neutrophils Percent Auto 88.4 % (45.5-73.1); Nucleated Red Blood Cells Absolute Auto 0.1 K/mm3 (0.0-0.012); Nucleated Red Blood Cells Perc 1.4 % (0.0-0.2); Platelet Count Result 104 k/mm3 (150-375); Red Blood Count 3.55 M/mm3 (4.2-5.4); Red Cell Distribution Width 19.9 % (11.5-14.5); White Blood Count 9.2 K/mm3 (4.5-10.0)
[2022-05-12 02:51] LABS: Alanine Aminotransferase 58 U/L (6-35); Albumin Level 4.1 g/dL (3.5-5.1); Alkaline Phosphatase 119 U/L (38-126); Anion Gap 9 mmol/L (8-16); Aspartate Amino Transferase 66 U/L (14-36); Bilirubin,Total 0.5 mg/dL (0.2-1.3); Blood Urea Nitrogen 60 mg/dL (7-17); Calcium 8.6 mg/dL (8.4-10.2); Carbon Dioxide 18 mmol/L (22-30); Chloride 114 mmol/L (98-107); Estimated Glomerular Filt Rate 17; Glucose 120 mg/dL (65-110); Potassium 6.8 mmol/L (3.4-5.0); Sodium 141 mmol/L (137-145)
[2022-05-12] MEDS: MORPHINE SULFATE (*CRX) 4 MG/ML INJ IV PUSH ×3 (03:19→05:51)
--- NOTE | 2022-05-12 03:58 | ADMGEN ---
This patient, Stephanie Da Silva, was admitted to [facility] Surg Room 312-01. Patient/family oriented to hospital policies and general routines including ID bracelet, bed and alarms, visiting hours, pain management, procedures, bathroom and other care routines, personal items, smoking policy, room service/diet, and visiting hours. Information on how to activate the Rapid Response Team has been discussed. Patient/Family are encouraged to report perceived risks to care and to ask questions if they do not understand what they are told or what they should do.
--- NOTE | 2022-05-12 04:04 | PM.IMHP ---
H&P: HPI History of Present Illness Date/Time: 05/12/22 04:04 Chief Complaint: respiratory distress Narrative: 86-year-old female with past medical history dementia, essential hypertension, chronic kidney disease and esophageal ulcer October 2021 who presented to the ER from [facility] facility due to respiratory distress. The patient was found to be dusky with mottling in poor perfusion. She was satting 70s on room air was placed on a non-rebreather. She was profoundly bradycardic with heart rate in the 30s. The patient was unresponsive and the family arrived to the ER and confirmed that the patient was a DNR and comfort measures. The patient's daughter who is the [id number] is currently traveling back from the [facility] but will not arrive in [place] and 21:00 on the . They do not want any aggressive interventions or life prolonging care. The patient was found to be hypothermic in the ER with a temperature of 85.8. She initially had a normal blood pressure but blood pressures trended down while in the ER and blood pressures are currently in the 70s systolic. Her respiratory rate in the ER was as high as the mid 40s and her pulse was in the low to mid 30s. Her gear shaver set up operator Appeared be a type 2 av block. her chest x-ray was consistent with fluid overload but echocardiogram in October 2021 demonstrated normal systolic function with indeterminate diastolic function. Her echocardiogram performed at that time was due to pulmonary edema. Labs demonstrated stable hemoglobin, mild acute kidney injury on chronic kidney disease and hyperkalemia with potassium of 6.8. EKG was not performed due to the family's desire for no aggressive interventions. EKG results were not going to change ultimate management. The patient was subsequently admitted the hospital in comfort based care only with morphine and Ativan. Although the patient's granddaughter at the bedside states that the patient has been ready to for quite some time. They wish for her to be comfortable. They would like they non-rebreather removed. Will place patient on nasal cannula as needed for comfort. Will provide oral care with moist swabs. The entirety of the HPI was obtained from ER records and review of past medical history. Patient and family are not able to provide any acute information regarding patient's presentation. Review of Systems Review of Systems: ROS unobtainable: Yes unobtainable due to mental status PMFSH Past Medical History Medical History (Updated 05/12/22 @ 05:34 by Khushbu Simms DO) Aortic heart murmur Arthritis Chronic anemia Chronic kidney disease Dementia Depression with anxiety Detached retina Esophageal ulcer with bleeding Gastroesophageal reflux disease Hearing loss Hyperlipidemia Hypertension Post-menopausal bleeding Surgical History Surgical History History of bunionectomy of both great toes History of carpal tunnel release History of cholecystectomy Status post trigger finger release Family History Family History Mother Family history of cardiovascular disease Family history of aortic aneurysm Father Family history of cardiovascular disease, Onset Age: 79 Family history of cardiomyopathy, Onset Age: 63 Sibling Family history of malignant neoplasm of brain, Onset Age: 51 Social History Social History (Updated 05/12/22 @ 04:16 by Khushbu Simms DO) Social History: Healthcare power of fulfillment representative: Kalyn Howells, daughter. Code status: Do not resuscitate/Do not intubate Smoking status: Never smoker Second hand tobacco smoke exposure: No Alcohol intake: never Substance use: never Substance use type: does not use Living arrangements: assisted Spiritual care concerns: No Meds Home Medications and Allergies Home Medications
[2022-05-12] MEDS: MORPHINE 50 MG/NS 100ML (*CRX) 50 MG/100 ML BAG IV CONT (06:16)
--- NOTE | 2022-05-12 07:01 | PC.NURSE ---
Grand daughters called out stating that they believed that the patient had passed. x2 RNs both continue to feel a very faint carotid pulse and minimal crepitus type respirations. Both Grand daughters remain at bedside. POA, Daughter is in air on her way here and will not be here until 1300 bharti. hand roller engraver aware.
--- NOTE | 2022-05-12 08:07 | PM.DDS ---
Discharge Summary Date and Time Date of : 05/12/22 Time of : 07:53 Provider Pronounced By: Naomi Marinelli and Viki Chase Probable Cause of Probable Cause of : Sepsis, Pneumonia, acute respiratory distress Summary Hospital Course: Patient is an 86-year-old female with a past medical history of dementia, essential hypertension, chronic kidney disease, esophageal ulcer who presented the ED due to respiratory distress. According to the ED note the patient was found to be does T and modeling with poor perfusion. Saturations were in the 30s on room air and heart rate was in the 30s. Patient was unresponsive. Family arrived and patient was made comfortable. Blood pressures remained in the 70s heart rate in the 30s. Chest x-ray consistent with fluid overload and possible pneumonia. Upon arrival patient was noted to be hypothermic with a temperature in the 80s. Potassium was noted to be 6.8 upon arrival which is most likely the reason for her bradycardia. Family decided that the best would be to follow the patient's wishes of being a DNR and not taking any heroic measures. The family decided that it would be best to make the patient comfortable and allow her to pass away peacefully. Patient was initiated on a morphine drip per family request non-rebreather was taken off and nasal cannula was placed. Patient at 7:53 a.m. this morning. Family members were present and everyone who is required to be notified was notified Additional Data Confirmation of as documented by pronouncing clinician: Pupillary Reflex, Palpable Pulses, Response to Stimuli, Heart Tones and Breath Sounds Family: at bedside Name of Provider Notified: Lincoln Vivar APN Time Provider Notified: 08:00 Was code activated?: No Provider Requests Autopsy: No Family Requests Autopsy: No Automobile Sales Consultant Notified: Yes Advance directives: Yes Hospice patient?: No
== END 2022-05-12 07:53 | disposition expired ==
LOC: ANHED 02:03 → ANH3MEDSUR 02:54
PROVIDERS: Admitting Provider Internal Medicine; Emergency Provider Emergency Medicine; PCP Internal Medicine; Visit Provider Internal Medicine
DX: J96.01 Acute respiratory failure with hypoxia (principal); I13.0 Hypertensive heart and chronic kidney disease with heart failure and stage 1 through stage 4 chronic kidney disease, or unspecified chronic kidney disease; I50.1 Left ventricular failure, unspecified; N18.9 Chronic kidney disease, unspecified; E87.5 Hyperkalemia; R00.1 Bradycardia, unspecified; Z51.5 Encounter for palliative care; R19.7 Diarrhea, unspecified; R11.0 Nausea; D64.9 Anemia, unspecified; F03.90 Unspecified dementia, unspecified severity, without behavioral disturbance, psychotic disturbance, mood disturbance, and anxiety; J90 Pleural effusion, not elsewhere classified; E78.5 Hyperlipidemia, unspecified; K22.10 Ulcer of esophagus without bleeding; K21.9 Gastro-esophageal reflux disease without esophagitis; F41.8 Other specified anxiety disorders; Z66 Do not resuscitate; K64.9 Unspecified hemorrhoids; M19.90 Unspecified osteoarthritis, unspecified site; H91.90 Unspecified hearing loss, unspecified ear; Z79.1 Long term (current) use of non-steroidal anti-inflammatories (NSAID); Z79.899 Other long term (current) drug therapy; Z82.49 Family history of ischemic heart disease and other diseases of the circulatory system
CPT/HCPCS: 36415; 71045; 80053; 85025; 85055; 96365; 96366; 96374; 96375; 96376; 99285; G0378; J2060; J2270